=== PATIENT | female | born 1930 | race Hispanic/Latino ===

== ENCOUNTER 2016-11-07 06:47 | Inpatient (IN) | payer MEDICARE ==
[2016-11-07 06:50] VITALS: BMI 32.8
--- NOTE | 2016-11-07 07:14 | ED PDOC ---
Arrival/HPI - General Chief Complaint: GI Problem Time Seen by Provider: 11/07/16 07:02 Historian: Patient, Family (Daughters) - History of Present Illness Narrative History of Present Illness (Text): 11/07/16 07:12 Jenna Garg is an 86 year old female, whose past medical history includes Arthritis, hypertension, Wheezing, and spinal Stenosis, who presents to the emergency department complaining of diffuse, intermittent abdominal pain since last night. Patient's daughter states that patient's abdomen is "bigger" and her abdomen was firm this morning. She also notes that patient experiences incontinence. Patient indicates that her pain worsens with movement and it hurts to lay flat. Patient denies any nausea, vomiting, diarrhea, constipation, fever, bleeding, or any other complaint at this time. PMD: Dr. Maria Time/Duration: 4-6 hours Symptom Onset: Gradual Symptom Course: Worsening Severity Level: Moderate Activities at Onset: Rest Modifying Factors (Text): Pain worsens with movement, cannot lay flat Context: Home Past Medical History - Provider Review Nursing Documentation Reviewed: Yes - Infectious Disease Hx of Infectious Diseases: None - Cardiac Hx Hypertension: Yes - Pulmonary Hx Respiratory Disorders: Yes Hx Chronic Obstructive Pulmonary Disease (COPD): Yes (?) - Psychiatric Hx Substance Use: No - Anesthesia Hx Anesthesia: No Family/Social History - Physician Review Nursing Documentation Reviewed: Yes Family/Social History: No Known Family HX Smoking Status: Never Smoked Hx Alcohol Use: No Hx Substance Use: No Allergies/Home Meds Allergies/Adverse Reactions: Allergies No Known Allergies Allergy (Verified 11/07/16 06:50) Review of Systems - Physician Review All systems were reviewed & negative as marked: Yes - Review of Systems Constitutional: absent: Fevers, Night Sweats Eyes: absent: Vision Changes ENT: absent: Hearing Changes Respiratory: absent: SOB, Cough Cardiovascular: absent: Chest Pain Gastrointestinal: Abdominal Pain. absent: Constipation, Diarrhea, Nausea, Vomiting Genitourinary Female: Other (Incontinence) Skin: absent: Pruritis Neurological: absent: Headache Endocrine: absent: Polyuria Hemo/Lymphatic: absent: Easy Bleeding Psychiatric: absent: Depression Physical Exam Vital Signs Reviewed: Yes Vital Signs Temp Pulse Resp BP Pulse Ox 11/07/16 13:36 70 18 156/68 H 96 11/07/16 13:34 70 156/68 H 11/07/16 12:00 97.3 F L 71 18 138/72 98 11/07/16 11:39 97.3 F L 11/07/16 09:41 60 18 143/71 95 11/07/16 09:08 60 18 144/67 96 11/07/16 07:02 62 18 167/72 H 94 L Temperature: Afebrile Blood Pressure: Hypertensive Pulse: Regular Respiratory Rate: Normal Appearance: Positive for: Well-Appearing, Non-Toxic, Comfortable Pain Distress: None Mental Status: Positive for: Alert and Oriented X 3 - Systems Exam Abdomen: Present: Tenderness, Guarding, Other (Palpable abdominal mass) Medical Decision Making - Lab Interpretations Lab Results: 11/07/16 07:12 11/07/16 07:12 Lab Results 11/07/16 07:12: WBC 6.8, RBC 3.04 L, Hgb 9.5 L, Hct 28.2 L, MCV 92.8, MCH 31.3, MCHC 33.7, RDW 19.5 H, Plt Count 108 L, MPV 11.8 H, Gran % 61.9, Lymph % (Auto) 30.7, Marin % (Auto) 5.8, Eos % (Auto) 1.3 L, Baso % (Auto) 0.3, Gran # 4.20, Lymph # 2.1, Marin # 0.4, Eos # 0.1, Baso # 0.02, PT 11.4, INR 1.06, APTT 30.0, Sodium 138, Potassium 5.1 H, Chloride 101, Carbon Dioxide 29, Anion Gap 13, BUN 36 H, Creatinine 0.9, Est GFR ( Amer) > 60, Est GFR (Non-Af Amer) 59, Random Glucose 79, Calcium 9.9, Total Bilirubin 0.7, AST 50 H, ALT 28, Alkaline Phosphatase 202 H, Total Protein 7.3, Albumin 3.6, Globulin 3.7, Albumin/ Globulin Ratio 1.0 L, Lipase 240 - RAD Interpretation Radiology Orders: 11/07/16 07:12 ABD PELVIS PO & IV CONTRAST [CT] Stat 11/07/16 07:13 CHEST PORTABLE [RAD] Stat - Medication Orders Current Medication Orders: Metoprolol Succinate (Toprol Xl) 50 mg PO BRK [facility] Last Admin: 11/07/16 13:34 Dose: 50 MG MAR Pulse and Blood Pressure Document 11/07/16 13:34 [facility] (Rec: 11/07/16 13:35 [facility] [id number]) Pulse Pulse Rate (60-90) 70 Blood Pressure Blood Pressure (100/60-150/90) 156/68 Discontinued Medications Famotidine (Pepcid) 20 mg IVP STAT STA Stop: 11/07/16 07:13 Last Admin: 11/07/16 07:29 Dose: 20 MG IVP Administration Document 11/07/16 07:29 [facility] (Rec: 11/07/16 07:29 [facility] [id number]) Charges for Administration # of IVP Administrations 1 Iohexol (Omnipaque 240 (50 Ml)) Confirm Administered Dose 50 ml .ROUTE .STK-MED ONE Stop: 11/07/16 07:21 Iohexol (Omnipaque 350 100 Ml) Confirm Administered Dose 350 mg .ROUTE .STK-MED ONE Stop: 11/07/16 10:11 Ketorolac Tromethamine (Toradol) 15 mg IVP STAT STA Stop: 11/07/16 07:13 Last Admin: 11/07/16 07:29 Dose: 15 MG IVP Administration Document 11/07/16 07:29 [facility] (Rec: 11/07/16 07:29 [facility] [id number]) Charges for Administration # of IVP Administrations 1 ED OBSERVATION Date of observation admission: 11/07/16 Time of observation admission: 07:15 - Observation admission statement Patient is being placed in observation because:: Diffuse, intermittent abdominal pain - Goals of Observation Goals of observation are:: Plan: -- EKG -- Abdomen and Pelvis CT w/ PO & IV Contrast -- Chest X-ray -- Labs -- Pepcid, Toradol -- Reassess and disposition - Progress Note Progress Note: EKG: Ordered, reviewed, and independently interpreted the EKG. Rate : 69 BPM Rhythm : NSR Interpretation : 1st degree AV block. PVC. 11/07/16 08:36 Reviewed radiology, chest x-ray shows cardiomegaly 11/07/16 09:50 Chest X-ray: Creator : DORETHA JONES MD FINDINGS: LUNGS:There is mild pulmonary venous congestion. PLEURA:There is blunting of the left costophrenic angle. There is no large right pleural effusion. No pneumothorax apparent. CARDIOVASCULAR:The heart is enlarged. OSSEOUS STRUCTURES:There is a deformity. VISUALIZED UPPER ABDOMEN:Normal. OTHER FINDINGS:None. IMPRESSION: Cardiomegaly. Question of left pleural effusion. 11/07/16 12:[address] results discussed with family. Dr. García, PMD, came to talk to family about results. In light of persistent pain, patient will be placed on observation for intractable pain. She also has noted b/l pleural effusions with elevated BNP so she will be evaluated for New Onset CHF. - Scribe Statement The provider has reviewed the documentation as recorded by the Karinaibe Florencia Sarah Provider Scribe Attestation: All medical record entries made by the Sharan were at my direction and personally dictated by me. I have reviewed the chart and agree that the record accurately reflects my personal performance of the history, physical exam, medical decision making, and the department course for this patient. I have also personally directed, reviewed, and agree with the discharge instructions and disposition. Disposition/Present on Arrival - Present on Arrival Any Indicators Present on Arrival: No History of DVT/PE: No History of Uncontrolled Diabetes: No Urinary Catheter: No History of Decub. Ulcer: No History Surgical Site Infection Following: None - Disposition Have Diagnosis and Disposition been Completed?: Yes Diagnosis: Intractable abdominal pain, Congestive heart failure Disposition Time: 07:15 Patient Plan: Observation Condition: FAIR
[2016-11-07] MEDS ORDERED: Iohexol 240 (50 ml) ONE (07:20)
[2016-11-07 07:37] LABS: ADD MANUAL DIFF? NO; BASO # 0.02 K/mm3 (0.0-2.0); BASO % 0.3 % (0.0-3.0); EOS # 0.1 (0.0-0.7); EOS % 1.3 % (1.5-5.0); GRAN % 61.9 % (50.0-68.0); HEMATOCRIT 28.2 % (36.0-48.0); LYMPH # 2.1 (1.2-3.4); LYMPH % 30.7 % (22.0-35.0); MEAN CELL VOLUME 92.8 fL (80.0-105.0); MEAN CORPUSCULAR HEMOGLOBIN 31.3 pg (25.0-35.0); MEAN CORPUSCULAR HGB CONC 33.7 g/dl (31.0-37.0); MEAN PLATELET VOLUME 11.8 fl (7.0-11.0); MONO # 0.4 (0.1-0.6); MONO % 5.8 % (1.0-6.0); PLATELET COUNT 108 10^3/uL (120.0-450.0); RED CELL DISTRIBUTION WIDTH 19.5 % (11.5-14.5); WHITE BLOOD COUNT 6.8 10^3/ul (4.5-11.0)
[2016-11-07 07:45] LABS: ALKALINE PHOSPHATASE 202 U/L (38-133); ALT/SGPT 28 U/L (7-56); AST/SGOT 50 U/L (15-39); BILIRUBIN,TOTAL 0.7 mg/dL (0.2-1.3); BLOOD UREA NITROGEN 36 mg/dL (7-21); CALCIUM 9.9 mg/dL (8.4-10.5); CARBON DIOXIDE 29 mmol/L (21-33); CHLORIDE 101 mmol/L (98-107); GFR AFRICAN-AMERICAN > 60; GLUCOSE,RANDOM 79 mg/dL (70-110); LIPASE 240 U/L (23-300); POTASSIUM 5.1 mmol/L (3.6-5.0); SODIUM 138 mmol/L (132-148); TOTAL PROTEIN 7.3 g/dL (5.8-8.3)
[2016-11-07 07:46] LABS: INR 1.06 (0.93-1.08)
--- NOTE | 2016-11-07 09:51 | RAD ---
HISTORY: Abdominal pain COMPARISON: No prior. FINDINGS: LUNGS: There is mild pulmonary venous congestion. PLEURA: There is blunting of the left costophrenic angle. There is no large right pleural effusion. No pneumothorax apparent. CARDIOVASCULAR: The heart is enlarged. OSSEOUS STRUCTURES: There is a deformity. VISUALIZED UPPER ABDOMEN: Normal. OTHER FINDINGS: None. IMPRESSION: Cardiomegaly. Question of left pleural effusion.
[2016-11-07] MEDS ORDERED: Iohexol 350 MG/100 ML VIAL ONE (10:10)
--- NOTE | 2016-11-07 11:08 | CT ---
PROCEDURE: CT Abdomen and Pelvis with contrast HISTORY: abd pain and distention r/o mass r/o obstruction COMPARISON: None. TECHNIQUE: Helical CT scan of the abdomen and pelvis was performed after intravenous administration of contrast. Oral contrast was administered. Coronal and sagittal reformatted images were obtained. Contrast dose: 100 mL of Omnipaque 350 Radiation dose: Total exam DLP = 1188.45 mGy-cm. FINDINGS: LOWER THORAX: There are moderate bilateral pleural effusions with compressive atelectasis in the lungs, larger on the left. There is moderate cardiomegaly. LIVER: The liver is normal in size and there is homogeneous enhancement. No gross lesion or ductal dilatation. GALLBLADDER AND BILE DUCTS: There are no calcified gallstones. PANCREAS: The pancreas is grossly normal in appearance. No gross lesion or ductal dilatation. SPLEEN: The spleen is normal in size and there is homogeneous enhancement. ADRENALS: Both adrenal glands are normal in size without discrete nodule. No mass. KIDNEYS AND URETERS: Both kidneys are normal in size and there is homogeneous enhancement. No hydronephrosis. No solid mass. VASCULATURE: There is ectasia of the infrarenal aorta and atherosclerotic aortoiliac calcifications. . No aortic aneurysm. BOWEL: The small bowel loops are normal in caliber. There is extensive sigmoid diverticulosis without CT evidence for acute diverticulitis. There is moderate amount of stool in the colon. APPENDIX: Normal appendix. PERITONEUM: There is moderate perihepatic fluid and small amount of free fluid in the pelvis. No free intraperitoneal air. LYMPH NODES: No enlarged lymph nodes. BLADDER: Partially decompressed. REPRODUCTIVE: The uterus is normal in size. There is a 7.8 x 5.7 cm cystic mass in the left adnexa. BONES: There is diffuse bone demineralization and severe levoscoliosis in the lumbar spine with multilevel degenerative disc disease and degenerative anterior listhesis of L4 on L5. OTHER FINDINGS: None. IMPRESSION: 1. Extensive sigmoid diverticulosis without CT evidence for acute diverticulitis. Moderate amount of stool in the colon. No evidence of bowel obstruction. 2. 7.8 x 5.7 cm cystic mass in the left adnexa. The differential considerations include simple cyst, cystadenoma and cystadenocarcinoma. Gynecologic consultation is advised. 3. Moderate bilateral pleural effusions and moderate ascites.
[2016-11-07] MEDS ORDERED: POLYETHYLENE GLYCOL 3350 17 GM/Dose PACKET PO SCH (13:30)
[2016-11-07] MEDS: Metoprolol Succinate 50 mg XL Tab PO SCH (13:34)
--- NOTE | 2016-11-07 14:57 | CARD ---
APPROVED REPORT EKG Measurement Heart [id number] <Conclusion> Sinus rhythm with 1st degree AV block with premature supraventricular complexes Possible Anterior infarct, age undetermined Abnormal ECG
--- NOTE | 2016-11-07 17:02 | HP ---
CHIEF COMPLAINT: Generalized abdominal pain for 1 day. HISTORY OF PRESENT ILLNESS: This is an 86-year-old female with past medical history significant for hypertension and osteoarthritis, who presented to the Emergency Room with complaints of generalized abdominal pain, intermittent since last night. The patient denies any nausea, vomiting, diarrhea, or constipation. The patient denies any fever, shortness of breath, or cough. PAST MEDICAL HISTORY: hypertension for many years, currently presently taking metoprolol 50 mg daily, osteoarthritis of both knees, chronic anemia, and hyperlipidemia. PAST SURGICAL HISTORY: She is status post cataract surgeries. CURRENT MEDICATIONS: Metoprolol 50 mg daily. FAMILY HISTORY: Noncontributory. No history of any cancer. Past history of heart disease. SOCIAL HISTORY: The patient denies any smoking, alcohol, or drug use. She is retired and the lives with her daughter who will be taking care of her. The patient is ambulatory and independent of activity of daily living. REVIEW OF SYSTEMS: The patient denies any fever, loss of appetite or weight loss. She denies any blurry vision. She denies any nasal congestion, sore throat, or dysphagia. She denies any shortness of breath, but has a dry cough for the past month. She denies any chest pain, heart palpitation, diaphoresis, shortness of breath. The patient complains of generalized abdominal pain for 2 days. She denies any nausea, vomiting, diarrhea, or constipation. She denies any rectal bleeding. She denies any dysuria, hematuria, or flank pain. The patient complains of bilateral knee and hip pain, and limitation of ambulation. The patient denies any neurological symptoms as dizziness, blurry vision, weakness, or numbness. The patient denies any psychiatric symptoms of depression or anxiety. PHYSICAL EXAMINATION: VITAL SIGNS: The patient's vitals are stable. Temperature 97.3, pulse 71 regular, blood pressure 138/72, respiratory rate 18. GENERAL: The patient is alert, awake, oriented, in no acute form of distress during the examination. HEAD: Normocephalic, atraumatic. EYES: Pupils reactive to light. No jaundice. Oral mucosa is moist. NECK: Supple. No neck masses, JVD, or bruits. LUNGS: Clear to auscultation. HEART: Regular rhythm and rate of 70 per minute. ABDOMEN: Nondistended. There is tenderness in the periumbilical area with some palpable small ventral hernia. Bowel sounds are positive. EXTREMITIES: Significant for 1+ bilateral pedal edema, small varicose veins, distal pulses diminished. DIAGNOSTIC TESTS: CBC with WBC 6.8, hemoglobin 9.5, hematocrit 28.2, and platelet count 108,000. PT, PTT normal. Chemistry with sodium 138, potassium 5.1, her BUN is 36 and creatinine 0.9. Liver enzymes: AST 50, ALT 28, and alkaline phosphatase 202. Her BNP was elevated at 1800. ECG showed normal sinus rhythm with first degree AV block and premature PVCs, possibly an old anterior infarct. Chest x-ray showed possible left pleural effusion. CT scan of the abdomen showed extensive sigmoid diverticulosis without signs of diverticulitis. There was moderate amount of stool in the colon. There is moderate bilateral pleural effusion with moderate ascites noted, and large 7.8 cm cystic mass in the left adnexal area. ASSESSMENT: An 86-year-old female with 1. Generalized abdominal pain, etiology uncertain, possibly early obstruction . 2. Pleural effusion, etiology uncertain, possibly cardiac due to CHF. 3. Ovarian mass, of uncertain etiology. 4. Hypertension. 5. Anemia chronic, no signs of acute bleeding. PLAN OF TREATMENT: The patient will be admitted for observation. The case was discussed with family members. Discussed the possibility of obstruction. The patient will be evaluated by a surgeon and heat set operator. The patient will be maintained on chronic antihypertensive medication, and also Lasix will be started. Follow up urine and blood cultures, CEA, and transvaginal ultrasound was ordered for evaluation of ovarian mass.I will consult TICKET CHOPPER ASSEMBLER . Jeannine Khoury MD cc: [id number] TT: 11/07/2016 17:01:12 ln MTDIndu
[2016-11-07] MEDS ORDERED: Pneumococcal 23-Valent Vaccine IM ONE (19:42)
[2016-11-07] MEDS ORDERED: Influenza Vaccine 45 MCG/0.5 ml IM ONE (19:42)
--- NOTE | 2016-11-07 20:47 | CP.PCM.CON ---
History of Present Illness - History of Present Illness History of Present Illness: SURGERY CONSULT NOTE FOR DR. VARELA 86F presents to [facility] ED with abdominal pain that started last midnight. Patient states pain was localized to the lower abdomen bilaterally and came on suddenly. She has never had this type of pain before. She denies nausea/ vomiting and states she just recently ate fluid liquid diet and was able to keep the food down. Patient admits to passing multiple small soft bowel movement right before coming in to the ED and also while in the ED. She denies fevers or chills. PMH: HTN, Arthritis, Anemia, HLD PSH: Cataract Social: denies tobacco, alcohol, illicit drugs Allergies: NKDA Past Patient History - Infectious Disease Hx of Infectious Diseases: None - Past Social History Smoking Status: Never Smoked - CARDIAC Hx Cardiac Disorders: Yes Hx Hypertension: Yes - PULMONARY Hx Respiratory Disorders: Yes Hx Chronic Obstructive Pulmonary Disease (COPD): Yes (?) - NEUROLOGICAL Hx Neurological Disorder: Yes - HEENT Hx HEENT Problems: Yes Hx Deafness: Yes - RENAL Hx Chronic Kidney Disease: No - ENDOCRINE/METABOLIC Hx Endocrine Disorders: No - HEMATOLOGICAL/ONCOLOGICAL Hx Blood Disorders: Yes Hx Anemia: Yes (IRON DEFICIENCY) - INTEGUMENTARY Hx Dermatological Problems: Yes (SACRAL PRESSURE ULCER 0.8 X 0.3 X 0.1 ,IASD AND MASD) - MUSCULOSKELETAL/RHEUMATOLOGICAL Hx Musculoskeletal Disorders: Yes Hx Falls: Yes Hx Spinal Stenosis: Yes Hx Unsteady Gait: Yes (ROLLATOR) - GASTROINTESTINAL Hx Gastrointestinal Disorders: Yes (CONSTIPATION) - GENITOURINARY/GYNECOLOGICAL Hx Genitourinary Disorders: Yes Hx Incontinence: Yes - PSYCHIATRIC Hx Substance Use: No - SURGICAL HISTORY Hx Surgeries: No - ANESTHESIA Hx Anesthesia: No Meds Allergies/Adverse Reactions: Allergies Allergy/AdvReac Type Severity Reaction Status Date / Time No Known Allergies Allergy Verified 11/07/16 16:49 - Medications Medications: Current Medications Acetaminophen (Tylenol 325mg Tab) 650 mg PO Q4H PRN PRN Reason: Pain, Mild (1-3) Furosemide (Lasix) 20 mg IVP Q12 DERICK Last Admin: 11/07/16 15:06 Dose: 20 mg Ketorolac Tromethamine (Toradol) 15 mg IVP Q6 PRN PRN Reason: Pain, moderate (4-7) Metoprolol Succinate (Toprol Xl) 50 mg PO BRK [facility] Last Admin: 11/07/16 13:34 Dose: 50 mg Physical Exam - Constitutional Appears: Non-toxic, No Acute Distress - Head Exam Head Exam: ATRAUMATIC - Eye Exam Eye Exam: EOMI, PERRL - ENT Exam ENT Exam: Mucous Membranes Moist - Respiratory Exam Respiratory Exam: Clear to Auscultation Bilateral, NORMAL BREATHING PATTERN - Cardiovascular Exam Cardiovascular Exam: REGULAR RHYTHM, +S1, +S2 - GI/Abdominal Exam GI & Abdominal Exam: Soft, Tenderness (tenderness in the LLQ region). absent: Distended, Firm, Guarding, Hernia, Rebound, Rigid - Extremities Exam Extremities exam: Positive for: pedal edema, pedal pulses present. Negative for : tenderness - Neurological Exam Neurological exam: Alert, Oriented x3 - Skin Skin Exam: Dry, Intact, Normal Color, Warm Results - Vital Signs Recent Vital Signs: Last Vital Signs Temp 98.3 F 11/07/16 19:19 Pulse 67 11/07/16 19:19 Resp 19 11/07/16 19:19 BP 124/57 L 11/07/16 19:19 Pulse Ox 93 L 11/07/16 18:06 - Labs Result Diagrams: 11/07/16 07:12 11/07/16 07:12 Labs: Laboratory Results - last 24 hr 11/07/16 13:00 NT-Pro-B Natriuret Pep 1830 H CA 125 Antigen 42.1 H Assessment & Plan - Assessment and Plan (Free Text) Assessment: 86F presents with abdominal pain likely due to left cystic mass in left adnexa/ constipation CT: moderate amount of stool in the colon, 7.8*5.7cm cystic mass in the left adnexa region (cyst vs cystadenoma vs cystadenocarcinoma) Plan: - Patient needs OBGYN consult for adnexal mass - Gylcerin suppository, dulcolax - serial abdominal exams - pain control Discussed with Dr. Jolynn Bertrand, PGY1
[2016-11-07] MEDS ORDERED: Bisacodyl 5mg EC Tab PO ONE (23:24)
--- NOTE | 2016-11-08 06:14 | CP.PCM.PN ---
Subjective - Date & Time of Evaluation Date of Evaluation: 11/08/16 Time of Evaluation: 06:10 - Subjective Subjective: SURGERY NOTE FOR DR. VARELA 86F seen and examined at bedside. Patient states she feels better. Denies pain, nausea, vomiting. Tolerating her diet. She had more small bowel movements after the glycerin suppository. Objective - Vital Signs/Intake and Output Vital Signs (last 24 hours): Temp Pulse Resp BP Pulse Ox 98.3 F 78 19 138/62 93 L 11/07/16 19:19 11/08/16 05:55 11/07/16 19:19 11/07/16 21:39 11/07/16 18:06 - Medications Medications: Current Medications Acetaminophen (Tylenol 325mg Tab) 650 mg PO Q4H PRN PRN Reason: Pain, Mild (1-3) Furosemide (Lasix) 20 mg IVP Q12 DERICK Last Admin: 11/07/16 21:39 Dose: 20 mg Ketorolac Tromethamine (Toradol) 15 mg IVP Q6 PRN PRN Reason: Pain, moderate (4-7) Metoprolol Succinate (Toprol Xl) 50 mg PO BRK [facility] Last Admin: 11/07/16 13:34 Dose: 50 mg - Labs Labs: PT 11.4 Seconds (9.9-11.8) 11/07/16 07:12 INR 1.06 (0.93-1.08) 11/07/16 07:12 APTT 30.0 Seconds (23.7-30.8) 11/07/16 07:12 - Constitutional Appears: Non-toxic, No Acute Distress - Head Exam Head Exam: ATRAUMATIC - Eye Exam Eye Exam: EOMI, PERRL - ENT Exam ENT Exam: Mucous Membranes Moist - Respiratory Exam Respiratory Exam: Clear to Ausculation Bilateral, NORMAL BREATHING PATTERN - Cardiovascular Exam Cardiovascular Exam: REGULAR RHYTHM, +S1, +S2 - GI/Abdominal Exam GI & Abdominal Exam: Soft. absent: Distended, Firm, Guarding, Rigid, Tenderness , Rebound - Extremities Exam Extremities Exam: Pedal Edema. absent: Tenderness - Neurological Exam Neurological Exam: Alert, Awake - Psychiatric Exam Psychiatric exam: Normal Affect, Normal Mood - Skin Skin Exam: Dry, Intact, Normal Color, Warm Assessment and Plan - Assessment and Plan (Free Text) Assessment: 86F presents with resolving abdominal pain (resolved) likely due to left adnexal cystic mass Plan: - f/u Audio/Visual Operator - Dulcolax if patient feels further constipation - serial abdominal exams - pain control Further recs discuss with Dr. Jolynn Bertrand, PGY1
[2016-11-08 07:29] LABS: HEMATOCRIT 24.7 % (36.0-48.0); MEAN CELL VOLUME 92.9 fL (80.0-105.0); MEAN CORPUSCULAR HEMOGLOBIN 31.2 pg (25.0-35.0); MEAN CORPUSCULAR HGB CONC 33.6 g/dl (31.0-37.0); PLATELET COUNT 94 10^3/uL (120.0-450.0); RED CELL DISTRIBUTION WIDTH 19.7 % (11.5-14.5); WHITE BLOOD COUNT 7.7 10^3/ul (4.5-11.0)
[2016-11-08 07:34] LABS: ALB/GLOB RATIO 0.9 (1.1-1.8); BILIRUBIN,TOTAL 0.5 mg/dL (0.2-1.3); CALCIUM 9.1 mg/dL (8.4-10.5); TOTAL PROTEIN 6.2 g/dL (5.8-8.3)
[2016-11-08] MEDS: Metoprolol Succinate 50 mg XL Tab PO SCH (08:33)
[2016-11-08] MEDS: Nystatin 100,000 Units/gm Topical Pow(15 gm) TOP SCH ×2 (12:45→18:32)
[2016-11-08 12:49] LABS: IRON 69 ug/dL (45-180)
[2016-11-08 21:09] LABS: URINE BILIRUBIN NEGATIVE (NEGATIVE); URINE BLOOD LARGE (NEGATIVE); URINE GLUCOSE (UA) NEGATIVE (NEGATIVE); URINE KETONE NEGATIVE (NEGATIVE); URINE LEUKOCYTE ESTERASE MODERATE Leu/uL (NEGATIVE); URINE PROTEIN NEGATIVE mg/dL (<30 mg/dL)
[2016-11-08 21:10] LABS: URINE APPEARANCE CLOUDY (CLEAR); URINE COLOR YELLOW (YELLOW)
[2016-11-08 21:14] LABS: URINE AMORPHOUS SEDIMENT MANY; URINE BACTERIA SMALL (NEG); URINE EPITHELIAL CELLS MANY /hpf (0-5); URINE RBC 25 - 30 /hpf (0-2)
--- NOTE | 2016-11-08 22:46 | PN ---
DATE: 11/08/2016 SUBJECTIVE: The patient was seen this morning at bedside. The patient is feeling much better. She denies any abdominal pain. Surgical consultation appreciated. The patient was treated with Dulcolax suppositories to improve her constipation. She denies any nausea, vomiting or diarrhea. The patien t is tolerating diet. PHYSICAL EXAMINATION: VITAL SIGNS: Stable. Temperature 97.6, pulse 75 regular, blood pressure 134/55 and respiratory rate 19. GENERAL: She is comfortable, in no acute form of distress. HEENT: Head is normocephalic, atraumatic. Oral mucosa is moist. NECK: Supple. LUNGS: With decreased breath sounds. No rales, wheezing. HEART: With regular rhythm and rate. ABDOMEN: Soft, nondistended, nontender. Bowel sounds are positive. EXTREMITIES: With trace of edema, but decreased compared to yesterday. DIAGNOSTIC TESTS: This morning significant for CBC with WBC 7.7. Hemoglobin dropped to 8.3, down fr om 9.5 yesterday. Her hematocrit is 24.7. She has also low platelet count 94,000. Her chemistry sh owed normal electrolytes. Her BUN increased to 44 and creatinine is 1.6. CA-125 is 42.1, which is b orderline high. Her CEA is 2.2, which is normal. ASSESSMENT: 1. Abdominal pain, probably due to constipation, clinically improved. 2. Left ovarian mass of uncertain etiology. 3. Anemia with thrombocytopenia with no signs of acute bleeding. Must rule out myelodysplastic diso rder. 4. Bilateral pleural effusion. 5. Probably congestive heart failure. 6. Hypertension. 7. Increase of BUN and creatinine, possibly prerenal due to diuretics; however, the patient had also IV contrast yesterday. PLAN OF TREATMENT: We will decrease furosemide to once a day. We will continue her current treatmen t with metoprolol. Awaiting BEATER HEAD evaluation. Follow up echocardiogram, which was ordered. We will m onitor her hemoglobin and platelet count. I will discuss with family. Hematology consult. Jeannine Khoury MD cc: [id number] TT: 11/08/2016 22:46:31 Confirmation # [id number] Dictation # [id number] mn
[2016-11-09 07:46] LABS: HEMATOCRIT 27.4 % (36.0-48.0); MEAN CELL VOLUME 93.2 fL (80.0-105.0); MEAN CORPUSCULAR HEMOGLOBIN 31.3 pg (25.0-35.0); MEAN CORPUSCULAR HGB CONC 33.6 g/dl (31.0-37.0); MEAN PLATELET VOLUME 11.5 fl (7.0-11.0); RED CELL DISTRIBUTION WIDTH 19.5 % (11.5-14.5); WHITE BLOOD COUNT 7.7 10^3/ul (4.5-11.0)
[2016-11-09 08:06] LABS: BILIRUBIN,TOTAL 0.6 mg/dL (0.2-1.3); CALCIUM 9.5 mg/dL (8.4-10.5); POTASSIUM 4.9 mmol/L (3.6-5.0)
[2016-11-09] MEDS: Nystatin 100,000 Units/gm Topical Pow(15 gm) TOP SCH ×2 (09:32→17:38)
[2016-11-09] MEDS: Metoprolol Succinate 50 mg XL Tab PO SCH (09:36)
--- NOTE | 2016-11-09 10:04 | PN ---
DATE: 11/09/2016 The patient feels much better this morning. She denies any abdominal pain. The patient tolerates di et. She was evaluated by [employer] consultant last night. Case discussed with family members. The patient denies any shortness of breath, chest pain, dizziness. PHYSICAL EXAMINATION: VITAL SIGNS: She is afebrile, pulse 60, regular, blood pressure 155/72, respiratory rate 19. GENERAL: She is comfortable, sitting in the chair, alert, awake, oriented. HEENT: Head normocephalic, atraumatic. Oral mucosa is moist. NECK: Supple. LUNGS: Clear to auscultation with decreased breath sounds in the bases. HEART: With regular rhythm and bradycardic. ABDOMEN: Soft, nontender, nondistended. EXTREMITIES: With trace of edema, improved since admission. DIAGNOSTIC TESTS: Today, CBC stable with WBC 7.7, hemoglobin 9.2, hematocrit 27.4 and platelet count 101. Chemistry: Normal electrolytes. Her renal function seems increased with BUN 50 and creatinin e 1.6. ASSESSMENT: 1. Left ovarian mass of uncertain etiology with slightly elevated CA-125. 2. History of abdominal pain with constipation, resolved. 3. Anemia with thrombocytopenia with negative guaiac and no signs of active bleeding, rule out myelo dysplastic disorder. 4. Bilateral pleural effusions. 5. Hypertension, possibly. 6. Probably congestive heart failure. 7. Acute renal failure, probably prerenal due to furosemide. PLAN OF TREATMENT: We will follow up echocardiogram. Awaiting cardiology evaluation. Discussed josefa e with family and patient. The patient does not want transvaginal ultrasound or any aggressive treat ment for her ovarian mass. The family prefers observation and monitoring. I discussed with family celina medina for cardiac evaluation. They agree to have echocardiogram and cardiology consult. I discussed h ematology consultation, but her daughter wants to also wait since the problem is in chronic nature. I will start a small dose of IV fluid due to renal function and monitor. Jeannine Khoury MD cc: [phone] TT: 11/09/2016 10:03:54 Confirmation # [id number] Dictation # [id number] en
[2016-11-09] MEDS: Sodium Chloride 0.9% 1,000 ML IV SCH (14:00)
--- NOTE | 2016-11-09 14:29 | CARD ---
APPROVED REPORT EXAM: Two-dimensional and M-mode echocardiogram with Doppler and color Doppler. INDICATION Pleural Effusion Congestive Heart Failure 2D DIMENSIONS Left Atrium (2D)5.8 (1.6-4.0cm)IVSd1.3 (0.7-1.1cm) LVDd4.9 (3.9-5.9cm)PWd1.6 (0.7-1.1cm) LVDs3.2 (2.5-4.0cm)FS (%) 36.1 % LVEF (%)65.4 (>50%) M-Mode DIMENSIONS Aortic Root2.80 (2.2-3.7cm)Aortic Cusp Exc.1.60 (1.5-2.0cm) Aortic Valve AoV Peak Xrmrqlzm579.0cm/sAoV VTI67.1cmAO Peak GR.33mmHg LVOT Peak Kdxsjjjc762.0cm/sLVOT VTI38.70cmAO Mean GR.16mmHg Mitral Valve MV E Evtrvzfk450.0cm/sMV A Etuzbppe607.0cm/sE/A ratio1.1 TDI Lateral E' Peak V9.26cm/sE/Lateral E'11.9E/Medial E'0.0 Pulmonary Valve PV Peak Waxoojga36.3cm/sPV Peak Grad.3mmHg Tricuspid Valve TR Peak Bnrgyjsz659qf/sRAP YXSMBWSR20jpXvMF Peak Gr.60mmHg HFSI93bzUo LEFT VENTRICLE The left ventricle is normal size. There is mild to moderate concentric left ventricular hypertrophy. The left ventricular function is normal.EF-65% There is normal LV segmental wall motion. The left ventricular diastolic function is normal. No left ventricle thrombus noted on this study. There is no ventricular septal defect visualized. There is no left ventricular aneurysm. There is no mass noted in the left ventricle. RIGHT VENTRICLE The right ventricle is mildly dilated. There is normal right ventricular wall thickness. The right ventricular systolic function is normal. ATRIA There is a mass suspected in the left atrium. The right atrium is mildly dilated. The interatrial septum is intact with no evidence for an atrial septal defect. AORTIC VALVE The aortic valve is thickened but opens well. The aortic valve is moderately sclerotic. There is trace aortic regurgitation. There is no aortic valvular stenosis. There is no aortic valvular vegetation. MITRAL VALVE The mitral valve is thickened but opens well. Mitral regurgitation is moderate. There is no mitral valve stenosis. There is no evidence of mitral valve prolapse. TRICUSPID VALVE The tricuspid valve leaflets are thickened , but open well. There is moderate tricuspid regurgitation.RVSP-70 mmof Hg. There is no tricuspid valve stenosis. There is no tricuspid valve prolapse or vegetation. PULMONIC VALVE The pulmonic valve is mildly thickened. There is mild to moderate pulmonic valvular regurgitation. There is no pulmonic valvular stenosis. GREAT VESSELS The aortic root is normal in size. The ascending aorta is normal in size. The pulmonary artery is normal. The IVC is normal in size and collapses >50% with inspiration. PERICARDIAL EFFUSION There is no pleural effusion. There is no pericardial effusion. <Conclusion> The left ventricle is normal size. There is mild to moderate concentric left ventricular hypertrophy. The left ventricular function is normal.EF-65% There is trace aortic regurgitation. Mitral regurgitation is moderate. There is moderate tricuspid regurgitation.RVSP-70 mmof Hg.
--- NOTE | 2016-11-09 15:33 | CON ---
DATE: 11/09/2016 REASON FOR CONSULTATION: Acute kidney injury, hyperkalemia. HISTORY OF PRESENTING ILLNESS: An 86-year-old lady, previously unknown to me, was brought to the [facility] Room on Wednesday because of complaints of abdominal pain. The patient underwent a CT scan of her abdomen and pelvis with contrast, which showed extensive sigmoid diverticulosis and acute diverti culitis. She was also found to have a 7.8 cm cystic mass in the left adnexa and moderate bilateral p leural effusions and moderate ascites. She was found to have lower extremity edema. She was treated with Lasix 20 mg IV q. 12 hours. Her c reatinine was 0.9 at the time of admission. Creatinine angella to 1.6 the next day. Consultation is re quested for elevated creatinine of 1.6. PAST MEDICAL AND SURGICAL HISTORY: Longstanding hypertension, severe osteoarthritis of both knees, c hronic anemia, hyperlipidemia. No known history of kidney disease, no history of diabetes. FAMILY HISTORY: Noncontributory. SOCIAL HISTORY: No smoking, no alcohol use, no IV drug abuse. ALLERGIES: No known drug allergies. MEDICATIONS AT HOME: Toprol-XL 50 mg daily. CURRENT MEDICATIONS: Dulcolax, Fluvirin, Lasix 40 IV q. 12 not given today, Pepcid, Pneumovax, Torad ol. REVIEW OF SYSTEMS: Currently, no pain, no nausea, no vomiting, no diarrhea, no chest tightness, no s hortness of breath. Complains of pain in her knees. Complains of stiffness. Difficulty ambulating. PHYSICAL EXAMINATION: GENERAL: Obese, elderly lady, sitting in chair. VITAL SIGNS: Blood pressure 166/76, heart rate 70, respiratory rate 72, temperature 97.4. HEENT: Normocephalic, atraumatic, positive pallor. NECK: Supple, no JVD. LUNGS: Bilateral equal air entry, no rales, dullness at the bases. CARDIAC: S1, S2, regular rate and rhythm, no murmur, no rub. ABDOMEN: Obese, distended, soft, nontender, bowel sounds present. EXTREMITIES: 1+ pitting edema of the lower extremities. INTAKE AND OUTPUT: 720/400. LABORATORY DATA: Sodium 136, potassium 4.9, chloride 98, CO2 30, BUN 50, creatinine 1.6, glucose 83, calcium 9.5, AST 51, ALT 30, albumin 3.5. Urinalysis: Yellow, cloudy, pH 6.0, specific gravity 1.0 10, protein negative, blood large, leukocyte esterase moderate. WBC 7.7, hemoglobin 9.2, hematocrit 27, platelets 101, MCV 93. Stool occult negative. ASSESSMENT: 1. Acute kidney injury, in the setting of exposure to contrast and diuretics. 2. Longstanding hypertension. 3. Chronic anemia. 4. Bilateral pleural effusions, ascites, lower extremity edema. 5. Large cystic adnexal mass in the left side. PLAN: 1. Follow up echocardiogram report. 2. Agree with holding Lasix for the time being. 3. Avoid nephrotoxins. 4. Suspect patient has combination of acute tubular necrosis secondary to contrast exposure plus pre renal azotemia. 5. Restart Toprol-XL for blood pressure control. 6. Monitor daily labs. 7. Do not overhydrate. Joslyn Vivas MD cc: [phone] TT: 11/09/2016 15:32:53 Confirmation # [id number] Dictation # [id number] en
--- NOTE | 2016-11-09 15:55 | CP.PCM.PN ---
Subjective - Date & Time of Evaluation Date of Evaluation: 11/09/16 Time of Evaluation: 06:45 - Subjective Subjective: General Surgery Dr. Neil Pt S&E @bedside. NAEO. pain improved. denies N/V, F/C. (+) BM, Flatus. tolerating diet. Objective - Vital Signs/Intake and Output Vital Signs (last 24 hours): Temp Pulse Resp BP Pulse Ox 97.4 F L 63 72 H 165/76 H 91 L 11/09/16 06:00 11/09/16 10:00 11/09/16 06:00 11/09/16 09:36 11/09/16 06:00 Intake and Output: 11/09/16 11/09/16 06:59 18:59 Intake Total 600 Output Total 300 Balance 300 - Medications Medications: Current Medications Acetaminophen (Tylenol 325mg Tab) 650 mg PO Q4H PRN PRN Reason: Pain, Mild (1-3) Furosemide (Lasix) 20 mg IVP DAILY [facility] Last Admin: 11/09/16 09:35 Dose: Not Given Sodium Chloride (Sodium Chloride 0.9%) 1,000 mls @ 60 mls/hr IV .[id number] [facility] Last Admin: 11/09/16 14:00 Dose: 60 mls/hr Ketorolac Tromethamine (Toradol) 15 mg IVP Q6 PRN PRN Reason: Pain, moderate (4-7) Metoprolol Succinate (Toprol Xl) 50 mg PO BRK [facility] Last Admin: 11/09/16 09:36 Dose: 50 mg Nystatin (Nystop Topical Powder) 1 gm TOP BID [facility] Last Admin: 11/09/16 09:32 Dose: 1 applic - Labs Labs: 11/09/16 07:30 11/09/16 07:30 Laboratory Tests 11/09/16 07:30 Calcium 9.5 Total Bilirubin 0.6 AST 51 H ALT 30 Alkaline Phosphatase 151 H Total Protein 7.0 Albumin 3.5 - Constitutional Appears: Non-toxic, No Acute Distress - Head Exam Head Exam: NORMAL INSPECTION - Eye Exam Eye Exam: Normal appearance - ENT Exam ENT Exam: Mucous Membranes Moist - Respiratory Exam Respiratory Exam: NORMAL BREATHING PATTERN. absent: Accessory Muscle Use, Respiratory Distress - GI/Abdominal Exam GI & Abdominal Exam: Soft. 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 Jolynn Bucio DO PGY1
[2016-11-09] MEDS: POLYETHYLENE GLYCOL 3350 17 GM/Dose PACKET PO SCH (17:38)
[2016-11-10 05:03] VITALS: RESP 17; O2SAT 92
[2016-11-10] MEDS: Sodium Chloride 0.9% 1,000 ML IV SCH (05:18)
--- NOTE | 2016-11-10 06:52 | CON ---
DATE: 11/09/2016 The patient in room 378, bed 2. REASON FOR CONSULTATION: Hypertension, mild congestion, small left pleural effusion and abdominal pa in. HISTORY OF PRESENT ILLNESS: The patient is an 86-year-old female, known case of arthritis, who sleep s in a lawn chair at home and recliner and also she walks with a walker due to arthritis, admitted wi th multiple episodes of generalized abdominal pain. The patient has no history of chest pain, shortn ess of breath, palpitations. The patient on admission to the hospital, chest x-ray showed mild conge stion and blunting of the left costophrenic angle suggestive of a small pleural effusion. The patien t's CAT scan of abdomen showed 7.8 x 7.5 left adnexal mass along with diverticulosis. Also, there is ascites present. PAST MEDICAL HISTORY: Positive for hypertension. The patient had cataract surgery. PERSONAL HISTORY: The patient denies any smoking or drinking or any drug taking. MEDICATIONS: The patient's medication at home was only metoprolol 50 mg daily. REVIEW OF SYSTEMS: All the systems were reviewed, positive mentioned in the history, others were neg ative. PHYSICAL EXAMINATION: VITAL SIGNS: Blood pressure 171/71, respirations 19, pulse 60, temperature 97.5. HEENT: Head is normocephalic. Eyes: Pupils normal. Conjunctivae slightly pale. NECK: JVP low. Carotid equal. THORAX: AP diameter normal. LUNGS: No significant rales. CARDIOVASCULAR: S1, S2. ABDOMEN: Soft. Bowel sounds normal. EXTREMITIES: No clubbing, no cyanosis. LABORATORY DATA: WBC 7.7, hemoglobin 9.2, hematocrit 27.4, platelets 101. Sodium 136, potassium 4.9 , BUN 50, creatinine 1.6. BUN on admission 36, creatinine 0.9, calcium 9.5, AST 51, ALT 30, alkaline phosphatase is 151. Total protein and albumin normal. PT, INR, PTT normal. Chest x-ray showed mil d congestion and blunting of the left costophrenic angle. EKG showed sinus rhythm with first degree AV block with premature PACs. CAT scan also showed stool in the colon. DIAGNOSES: Abdominal pain, probably it is related to constipation, diverticulosis, ovarian mass, his tory of hypertension, arthritis, anemia, thrombocytopenia. PLAN: The chest x-ray showed mild congestion, blunting of the costophrenic angles. PLAN: The patient is already getting furosemide 20 mg IV daily and also getting metoprolol succinate 50 mg p.o. daily. The patient is receiving IV fluids 60 mL per hour. Echo will be done today. I d iscussed with the family and the patient for the IV Lexiscan stress test to rule out any ischemia and they want to think about it and will wait for it. At present, the patient does not have any anginal symptoms and her breathing is normal. She is lying comfortably at this point without any cardiac sy mptoms. We will follow echocardiogram, especially to see LV function and will follow closely with juan carlos u. Nickolas Little MD cc: [phone] TT: 11/10/2016 06:52:08 Confirmation # [id number] Dictation # [id number] tn
[2016-11-10 07:45] LABS: HEMATOCRIT 26.6 % (36.0-48.0); MEAN CORPUSCULAR HEMOGLOBIN 30.8 pg (25.0-35.0); MEAN CORPUSCULAR HGB CONC 33.1 g/dl (31.0-37.0); MEAN PLATELET VOLUME 11.2 fl (7.0-11.0); RED CELL DISTRIBUTION WIDTH 19.4 % (11.5-14.5); WHITE BLOOD COUNT 7.4 10^3/ul (4.5-11.0)
[2016-11-10 07:58] LABS: BILIRUBIN,TOTAL 0.5 mg/dL (0.2-1.3); CALCIUM 9.4 mg/dL (8.4-10.5); POTASSIUM 4.7 mmol/L (3.6-5.0); TOTAL PROTEIN 6.6 g/dL (5.8-8.3)
[2016-11-10] MEDS: Metoprolol Succinate 50 mg XL Tab PO SCH (08:01)
--- NOTE | 2016-11-10 08:09 | CON ---
DATE: 11/09/2016 Seen and examined at the bedside. The chart was reviewed. REQUEST FOR CONSULT: Abdominal pain/constipation. HISTORY OF PRESENT ILLNESS: This is an 86-year-old female with a past medical history of hypertensio n and chronic anemia, who came to the Emergency Room with complaints of generalized abdominal pain th at started on the night of 11/06. The patient had a CT scan of abdomen and pelvis done on 11/07 with IV and oral contrast and reported extensive sigmoid diverticulosis without acute diverticulitis and moderate amount of stool in the colon. There was no bowel obstruction. She was also found to have a cystic mass in the left adnexa measuring 7.8 cm x 5.7 cm. She was seen by surgical services. She w as given a glycerin suppository and did have a bowel movement yesterday. No reports of any melena or bright red blood per rectum. She has not had any bowel movements yet today. She does report moving her bowels daily, may occasionally skip a day, takes Metamucil p.r.n. with good relief. She has nev er had an endoscopy or colonoscopy. The patient and family believe that the daughter spoke to Isabela and her other daughter at the bedside. They would like her mom to have a bowel regimen to prevent t he constipation. The patient denies any nausea, vomiting. No abdominal pain. No complaints of any fever, shortness of breath, or chest pain. Denies any weight loss, loss of appetite or any dysphagia or any overt GI bleed. PAST MEDICAL HISTORY: As stated above, hypertension, hyperlipidemia, chronic anemia, and osteoarthri tis of both knees. PAST SURGICAL HISTORY: Cataract surgery. SOCIAL HISTORY: Denies any cardiac or abdominal surgery. FAMILY HISTORY: Noncontributory at this time. ALLERGIES: No known drug allergies. MEDICATIONS: Reviewed as per MAR. SOCIAL HISTORY: Denies smoking, alcohol, or substance abuse. REVIEW OF SYSTEMS: Systems were reviewed with positive findings, see HPI. VITAL SIGNS: Temperature is 97.5, blood pressure 171/71, pulse 60, respirations 19, 94 on room air. LABORATORY: WBC 7.7, hemoglobin 9.2, hematocrit 27.4, platelets are 101. PT from 11/07/2016 is 11.4 , INR is 1.06, PTT is 30.0. Chem: Sodium 136, K is 4.9, BUN is 50, creatinine is 1.6. The patient did have iron level done at 69. TIBC is 323, percent saturation 21. Total bilirubin is 0.6, AST 51, ALT 30, alkaline phosphatase is 151. The patient had done on 11/07/2016, it is 42.1. i s 2.2. Urinalysis done on 11/08 showed moderate leuko esterase. Blood cultures negative x 2. Stool occult blood is negative. She had a chest x-ray on 11/07 and it showed mild pulmonary venous conges tion, cardiomegaly and question left pleural effusion. CT scan of abdomen and pelvis with IV and ora l contrast done on 11/07/2016 reports extensive sigmoid diverticulosis without CT evidence for acute diverticulitis, moderate amount of stool in the colon. No evidence of bowel obstruction, 7.8 x 5.7 c m cystic mass in the left adnexa. The differential considerations include simple cyst, cyst adenoma, and cyst adenocarcinoma. STRATEGIC ADVISOR consultation advised. Also moderate bilateral pleural effusion and mo derate ascites. PHYSICAL EXAMINATION: HEENT: Sclerae is anicteric. NECK: Supple. CARDIAC: S1, S2. LUNGS: Sounds are clear but decreased breath sounds at the bases. No rales or wheeze. ABDOMEN: With bowel sounds. Soft, nondistended, nontender on palpation. Under her breasts, she has some erythema. The patient is getting nystatin powder. EXTREMITIES: With trace edema. Positive pedal pulses. NEUROLOGIC: Awake, alert, and oriented. ASSESSMENT: This patient came with abdominal pain, status post CT scan of abdomen and pelvis, found to have a left ovarian mass with unknown etiology, as well as an elevated CA-125. She also was found to have sigmoid diverticulosis, but no diverticulitis and some constipation, anemia with improved th rombocytopenia. The patient's iron studies were okay with negative guaiac, bilateral pleural effusio n. It looks like she may have some congestive heart failure and acute renal failure. PLAN: We will start patient on MiraLax at least once a day. If patient has no bowel movement, we ca n try up to twice a day, titrate to her bowel movements and see how the patient tolerates this. Can consider Amimichelleza outpatient, but we will try the MiraLax for now. Discussed with the patient and the family, they did not want any invasive procedures. They prefer observation and monitoring. The pat ient, as I was told, did not want any transvaginal ultrasound or any aggressive treatment for the ova kim mass, and also discussed with the daughter as the patient has never had EGD or colonoscopy, they prefer conservative measures at this time. Thank you for this consult and for allowing us to participate in your patient's care. We will follow up. The patient was seen and case discussed with Dr. Hoover, who was covering rounds. Arcelia GILL cc: [phone] TT: 11/10/2016 05:03:58 Confirmation # [id number] Dictation # [id number] tn
[2016-11-10 09:17] VITALS: TEMP 97.9
[2016-11-10] MEDS: POLYETHYLENE GLYCOL 3350 17 GM/Dose PACKET PO SCH (09:24)
[2016-11-10] MEDS: Nystatin 100,000 Units/gm Topical Pow(15 gm) TOP SCH (09:25)
[2016-11-10 09:26] VITALS: BP 164/86
--- NOTE | 2016-11-10 09:52 | CP.PCM.PN ---
Subjective - Date & Time of Evaluation Date of Evaluation: 11/10/16 Time of Evaluation: 06:45 - Subjective Subjective: Pt seen and evaluates at the bedside. Pt denies abdominal pain, N/V. Claims to be eating, passing gas and having BM. Objective - Vital Signs/Intake and Output Vital Signs (last 24 hours): Temp Pulse Resp BP Pulse Ox 97.9 F 96 H 17 164/86 H 92 L 11/10/16 06:00 11/10/16 06:00 11/10/16 06:00 11/10/16 09:25 11/10/16 06:00 Intake and Output: 11/10/16 11/10/16 06:59 18:59 Intake Total 1120 Output Total 2 Balance 1118 - Medications Medications: Current Medications Acetaminophen (Tylenol 325mg Tab) 650 mg PO Q4H PRN PRN Reason: Pain, Mild (1-3) Furosemide (Lasix) 20 mg IVP DAILY [facility] Last Admin: 11/10/16 09:25 Dose: 20 mg Sodium Chloride (Sodium Chloride 0.9%) 1,000 mls @ 60 mls/hr IV .[id number] [facility] Last Admin: 11/10/16 05:18 Dose: 60 mls/hr Ketorolac Tromethamine (Toradol) 15 mg IVP Q6 PRN PRN Reason: Pain, moderate (4-7) Losartan Potassium (Cozaar) 25 mg PO DAILY [facility] Metoprolol Succinate (Toprol Xl) 50 mg PO BRK [facility] Last Admin: 11/10/16 08:01 Dose: 50 mg Nystatin (Nystop Topical Powder) 1 gm TOP BID [facility] Last Admin: 11/10/16 09:25 Dose: 1 applic Polyethylene Glycol (Miralax) 17 gm PO DAILY [facility] Last Admin: 11/10/16 09:24 Dose: 17 gm - Labs Labs: 11/10/16 07:00 11/10/16 07:00 PT 11.4 Seconds (9.9-11.8) 11/07/16 07:12 INR 1.06 (0.93-1.08) 11/07/16 07:12 APTT 30.0 Seconds (23.7-30.8) 11/07/16 07:12 - Additional Findings Additional findings: - Constitutional Appears: Non-toxic, No Acute Distress - Head Exam Head Exam: NORMAL INSPECTION - Eye Exam Eye Exam: Normal appearance - ENT Exam ENT Exam: Mucous Membranes Moist - Respiratory Exam Respiratory Exam: NORMAL BREATHING PATTERN. absent: Accessory Muscle Use, Respiratory Distress - GI/Abdominal Exam GI & Abdominal Exam: Soft. 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 Jolynn Rueda PGY1
[2016-11-10 10:41] VITALS: PULSE 66
--- NOTE | 2016-11-10 10:51 | DS ---
The patient is an 86-year-old female admitted for abdominal pain, was found to have bilateral pleural effusion, mild ascites, and a left ovarian mass. The patient was evaluated by purification operator and abdirahman roenterologist. The patient is feeling well. Her abdominal pain resolved. The patient is ambulatin g with walker. She is tolerating diet. PHYSICAL EXAMINATION: VITAL SIGNS: Stable. Temperature 97.9, pulse 96, blood pressure 160/90, and respiratory rate 17. GENERAL: She is comfortable, sitting in a reclining chair, alert, awake, oriented. HEENT: Head is normocephalic, atraumatic. Oral mucosa is moist. NECK: Supple. No neck masses. LUNGS: Decreased breath sounds in base. No rales or wheezing. HEART: With regular rhythm. ABDOMEN: Soft, nondistended, nontender. Bowel sounds are positive. No palpable masses. EXTREMITIES: With trace of edema. The patient is moving all extremities. NEUROLOGICAL: intact. DIAGNOSTIC TESTS: CBC is stable with WBC 7.4, hemoglobin 8.8, hematocrit 26.6, and platelet count 10 6. Chemistry with normal electrolytes. Her renal function is improving with BUN 48 and creatinine 1 .4, this morning. Blood cultures are negative. Urine cultures are growing small amount of bacteria, but nonspecific. ASSESSMENT: 1. Left ovarian mass of uncertain etiology with mildly elevated CA-125. 2. History of abdominal pain with constipation, resolved. 3. Anemia with thrombocytopenia with negative guaiac, and no signs of active bleeding, possibly myel odysplastic disorder. 4. Bilateral pleural effusions. 5. Hypertension. 6. Acute renal failure, probably due to diuretic and IV contrast, improving. PLAN OF TREATMENT: Case was discussed with family and the patient. The patient and family declined any aggressive diagnostic tests or treatment of left ovarian mass. Case was also discussed with gyne cologist. They declined a stress test. The patient will be discharged home today. Will continue he art-healthy diet. Continue metoprolol 50 mg daily and add losartan 25 mg daily. The patient will be monitored for anemia and renal function with laboratory test outpatient in 1-2 weeks. The patient w ill have visiting nurse and physical therapy at home. We will follow the patient with home visit. Jeannine Khoury MD cc: [phone] TT: 11/10/2016 10:50:32 jn
--- NOTE | 2016-11-10 12:26 | PN ---
DATE: 11/10/2016 REASON FOR CONSULTATION AND FOLLOWUP: Hypertension, small pleural effusion, abdominal pain. Hyperte nsion, cardiac evaluation, possible CHF. BRIEF CLINICAL HISTORY: An 86-year-old female with a past medical history significant for arthritis admitted with multiple episodes generalized abdominal pain. The patient denies any chest pain, short ness of breath, any palpitation. CAT scan shows 7.8 x 7.5 cm left adnexal mass, possible diverticula r colonic disease. PHYSICAL EXAMINATION: VITAL SIGNS: Temperature afebrile, heart rate 66, blood pressure 164/86. HEENT: PERRLA. Extraocular muscles intact. NECK: Supple. No carotid bruits. No thyromegaly. CHEST: Clear to auscultation. HEART: S1, S2 regular. ABDOMEN: Soft. EXTREMITIES: Clubbing and cyanosis negative. LABORATORY DATA: Blood workup as follows: WBC 7.4, hemoglobin 8.8, hematocrit 26.6, platelet count 106. Chemistry shows sodium 135, potassium 4.7, chloride 90, carbon dioxide 28, anion gap of 13, BUN 48, creatinine 1.4. The patient had echocardiography done yesterday, 11/09/2016, that showed ejecti on fraction 55%, trace aortic regurgitation, moderate mitral regurgitation, moderate tricuspid regurg itation, RV systolic pressure 70. IMPRESSION: Abdominal pain, probably related to diverticular colonic disease, ovarian mass, history of hypertension, arthritis, moderate mitral regurgitation, moderate tricuspid regurgitation, preserve d left ventricular function, anemia, thrombocytopenia, hypertension. RECOMMENDATION: The patient is on antibiotic, continue beta sukumar, 50 mg metoprolol succinate. Th e patient is in 25 mg of losartan started today. We will increase to 50 mg extra, change to ____ fro m tomorrow. We will follow with you. Thank you, Dr. Maria, for providing us the opportunity in taking care of the patient. Further rec ommendation depending on hospital course. We will follow with you. Nickolas Blue MD cc: [id number] TT: 11/10/2016 12:26:09 Confirmation # [id number] Dictation # [id number] tn
--- NOTE | 2016-11-10 13:30 | PN ---
DATE: 11/10/2016 SUBJECTIVE: The patient is currently seen sitting in a chair. She states she will likely be dis[facility] later today with close followup with Dr. Khoury in the office. MEDICATIONS: List reviewed. The patient is currently on losartan, Lasix is on hold, MiraLax, nystat in topical powder, normal saline was discontinued, Toprol, Toradol and Tylenol p.r.n. OBJECTIVE: INTAKE AND OUTPUT: Intake 2020, output 702. VITAL SIGNS: Weight stable at 185 pounds. Blood pressure ranging from 160-164 systolic, diastolics ranging 86-90. Pulse 66, respiratory rate 17, temperature 97.9, oxygen saturation 92%. HEENT: Shows her to be normocephalic, atraumatic. Conjunctivae are pale. Sclerae are nonicteric. NECK: Supple with no neck vein distention. CHEST: Clear to auscultation and percussion with slight decreased breath sounds at the bases. CARDIOVASCULAR: Shows a regular rate and rhythm with MR/AI/TR. ABDOMEN: Soft. Mild obesity. Bowel sounds normal. No rebound, no guarding. EXTREMITIES: Show no significant pitting edema of her lower extremity. No cyanosis, no clubbing. IMAGING: Echocardiogram done shows ejection fraction of 65% with concentric LVH, mitral regurgitatio n, aortic insufficiency, tricuspid regurgitation with moderate pulmonary hypertension. Abdominal and pelvic CT scan done on admission showed a 7.8 cm left adnexal mass. Family is not interested in an aggressive workup of this mass. Mild ascites with bilateral pleural effusions. LABORATORY DATA: White blood cell count is 7.4, hemoglobin down to 8.8, platelet count is 106,000. Chemistries show sodium of 135, potassium 4.7. Remainder of her electrolytes are normal. BUN is ramón n to 48 from 50. Baseline BUN is in the 30s. Creatinine is down from 1.6 to 1.4. Baseline creatini ne is 1.0. Urine showed white blood cells and red blood cells. MICROBIOLOGY: Urine cultures showed multiple species, not a clean catch. Blood cultures were negati ve. ASSESSMENT: 1. Acute renal failure with prerenal azotemia in the setting of IV contrast study for her CT scan an d in the setting of diuretic therapy. I did reassure patient and family that in all likelihood when these values are repeated in approximately 1-2 weeks in the outpatient setting, her BUN and creatinin e should be much closer to her baseline range. The patient will continue adequate amounts of hydrati on and avoid using diuretic therapy. 2. A 7.9 cm left adnexal mass. CA-125 was sent. The patient does not desire any aggressive followu p of this mass. 3. History of hypertension, left ventricular hypertrophy with mild valvular heart disease and pulmon michael hypertension. The patient for right now will continue losartan, beta sukumar therapy. If necess michael, a calcium channel sukumar may be added. 4. History of anemia with thrombocytopenia. This will be followed in the outpatient setting. 5. History of osteoarthritis in her weightbearing joints, especially her knees, currently stable. 6. A mild amount of ascites with bilateral pleural effusions. No workup was done for this. 7. Pulmonary hypertension appears to be stable at present. The patient is not on any medication. PLAN: 1. Agree with tentative discharge home. Perhaps repeat urine C and S in the outpatient setting. 2. Continue to monitor labs with followup chemistries in approximately 2 weeks in light of her eleva krishan BUN and creatinine. 3. Monitor blood pressure in the outpatient setting, p.r.n. low-dose calcium channel sukumar therapy added to angiotensin receptor sukumar therapy. We can use a more potent longer acting angiotensin r eceptor sukumar in the outpatient setting. 4. Continue beta sukumar therapy. 5. Limit anti-inflammatory and nonsteroidals. 6. Discussed case with her family and patient prior to her tentative discharge. Sarthak Bee MD cc: [id number] TT: 11/10/2016 13:29:33 Confirmation # [id number] Dictation # [id number] mn
--- NOTE | 2016-11-10 14:02 | PN ---
DATE: 11/10/2016 Seen and examined at the bedside earlier today. Her daughters were there. Spoke to her daughter, Ginny song. The patient did have a good bowel, soft bowel movement today. She tolerated the MiraLax. No reports of any overt GI bleed. VITAL SIGNS: Temperature is 97.9, blood pressure is 164/86, pulse 66, respirations 17. LABORATORIES: Today, WBC is 7.4, H and H is 8.8 and 26.6, platelets of 106. Sodium 135, K is 4.7, B UN 48, creatinine is 1.4. Total bilirubin is 0.5, AST 47, ALT 26, alkaline phosphatase is 144. PHYSICAL EXAMINATION: HEENT: Sclerae anicteric. NECK: Supple. CARDIAC: S1, S2. LUNGS: Decreased breath sounds but good aeration, no rales or wheeze. ABDOMEN: With bowel sounds. Soft, nontender. No rebound or guarding. ASSESSMENT: This is an 86-year-old female with history of hypertension, came with abdominal pain, wh ich is now resolved. She was also found to be constipated. That has also resolved. CT scan was don e showing diverticulosis, but no signs of diverticulitis, but she was found to have a left ovarian ma ss of unknown etiology with elevated CA-125 and also bilateral effusions and improving acute renal fa ilure. PLAN: The patient is going to be going home. The patient and family did not want any aggressive diane gnostic tests or treatment for the ovarian mass. Also discussed with them yesterday regarding they d id not want any invasive GI workup as well. Recommend to continue the MiraLax daily for regular shreya l movements, but to monitor stools. If more than 2 stools per day or too pasty, can cut back on the MiraLax. Discussed with patient's daughter Isabela and other family members at the bedside. The laura ent will be discharged home for PT and visiting nurse. The patient is going to be followed by her PC P. The patient was seen and case discussed with Dr. Hoover. Arcelia GILL cc: [id number] TT: 11/10/2016 14:01:42 Confirmation # [id number] Dictation # [id number] sn
--- NOTE | 2016-11-11 07:30 | CON ---
DATE: 11/10/2016 ADDENDUM This is an addendum to the GI progress report dictated by Arcelia Moore NP. This patient was seen and evaluated earlier. The patient was initially admitted with abdominal discomfort. The CT of the abd omen done showed ascites, cystic mass measuring about 7.8 x and severe constipation with possib le fecal impaction. The patient started moving her bowels after the enema and laxatives. No complai nts of any abdominal pain. No tenderness. Diffusely distended abdomen. PLAN: The CT was reviewed. The plan is to consider . I did discuss with the patient's Isabela eason, at length. Recommended to give her only low residue soft diet and use stool softeners p.r .n. basis. The patient can be followed with the oncologist, but the family wants mainly conservative management. Renee Hoover MD cc: [phone] TT: 11/11/2016 07:30:12 Confirmation # [id number] Dictation # [id number] en
== END 2016-11-10 12:57 | disposition home or self-care (01) | DRG 760 ==
LOC: ED 06:47 → EROBSV 07:14 → OBSVTOIN 07:14 → INTOOBSV 07:14 → UNDOADMOB 07:14 → ERH 13:09 → EROBSV 13:09 → ERH 14:31 → 3RSO 15:28 → ERH 15:28 → 3RSO 11-09 11:29 → ERH 11-09 11:29 → OBSVTOIN 11-09 11:29 → INTOOBSV 11-09 15:04
PROVIDERS: ADMIT Family Medicine; ATTEND Family Medicine
DX: N83.9 Noninflammatory disorder of ovary, fallopian tube and broad ligament, unspecified (principal); R97.1 Elevated cancer antigen 125 [CA 125]; N17.9 Acute kidney failure, unspecified; T50.8X5A Adverse effect of diagnostic agents, initial encounter; T50.1X5A Adverse effect of loop [high-ceiling] diuretics, initial encounter; I11.0 Hypertensive heart disease with heart failure; I50.9 Heart failure, unspecified; R18.8 Other ascites; D69.6 Thrombocytopenia, unspecified; I27.2 Other secondary pulmonary hypertension; D64.9 Anemia, unspecified; E78.5 Hyperlipidemia, unspecified; M17.0 Bilateral primary osteoarthritis of knee; K59.00 Constipation, unspecified; I08.1 Rheumatic disorders of both mitral and tricuspid valves

== ENCOUNTER 2017-06-26 22:03 | Inpatient (IN) | payer MEDICARE ==
--- NOTE | 2017-06-26 22:37 | ED PDOC ---
Arrival/HPI - General Chief Complaint: Abdominal Pain Time Seen by Provider: 06/26/17 22:04 Historian: Patient, Family (Sister) - History of Present Illness Narrative History of Present Illness (Text): 06/26/17 22:33 87 year old female c PMHx arthritis, hypertension, MDS/anemia, and spinal stenosis p/w nausea and vomiting associated with absence of bowel movement. Patient's sister reports nausea and vomiting after eating for the past week and absence of bowel movement for the past 2 days. Patient's sister described the vomit as a "brown stool-like fluid color". Patient's sister also reports an increase of abdominal distention more than usual. Patient reports constant burping. Denies history of kidney disease, any fever, abdominal pain, or any other complaints. PMD: DR. Oquendo Symptom Onset: Gradual Symptom Course: Worsening Activities at Onset: Light Context: Home Past Medical History - Provider Review Nursing Documentation Reviewed: Yes - Infectious Disease Hx of Infectious Diseases: None - Reproductive Menopause: Yes - Cardiac Hx Hypertension: Yes - Pulmonary Hx Chronic Obstructive Pulmonary Disease (COPD): Yes - Neurological Hx Neurological Disorder: Yes - HEENT Hx HEENT Disorder: Yes Hx Deafness: Yes - Renal Hx Renal Disorder: No - Endocrine/Metabolic Hx Endocrine Disorders: No - Hematological/Oncological Hx Blood Disorders: Yes Hx Anemia: Yes (IRON DEFICIENCY) - Integumentary Hx Dermatological Disorder: Yes (SACRAL PRESSURE ULCER 0.8 X 0.3 X 0.1 ,IASD AND MASD) - Musculoskeletal/Rheumatological Hx Musculoskeletal Disorders: Yes Hx Falls: Yes Hx Spinal Stenosis: Yes Hx Unsteady Gait: Yes (ROLLATOR) - Gastrointestinal Hx Gastrointestinal Disorders: Yes (CONSTIPATION) - Genitourinary/Gynecological Hx Genitourinary Disorders: Yes Hx Incontinence: Yes - Psychiatric Hx Substance Use: No - Anesthesia Hx Anesthesia: No Family/Social History - Physician Review Nursing Documentation Reviewed: Yes Family/Social History: No Known Family HX Smoking Status: Never Smoked Hx Alcohol Use: No Hx Substance Use: No Allergies/Home Meds Allergies/Adverse Reactions: Allergies No Known Allergies Allergy (Verified 06/26/17 22:26) Home Medications: Home Meds Medication Instructions Recorded Confirmed Metoprolol Succinate XL [Toprol XL] 50 mg PO DAILY 11/07/16 06/26/17 Mometasone/Formoterol [Dulera 200 13 gm IH BID 06/26/17 06/26/17 Mcg/5 Mcg Inhaler] Review of Systems - Physician Review All systems were reviewed & negative as marked: Yes - Review of Systems Constitutional: absent: Fevers Gastrointestinal: Stool Changes (constipation), Nausea, Vomiting, Other (burping ). absent: Abdominal Pain Physical Exam - Physical Exam Narrative Physical Exam (Text): Constitutional: No acute distress. Head: Normocephalic. Atraumatic. Eyes: PERRL. ENT: Moist mucous membranes. Neck: Supple. Cardiovascular: Regular rate. Chest: No tenderness. Respiratory: Clear to auscultation bilaterally. GI: Soft. Nontender. Abdominal distension. Back: No CVA tenderness. Musculoskeletal: No tenderness. Pitting edema bilateral lower extremities. Skin: No rash. Neurologic: Alert, no focal deficit. Vital Signs Reviewed: Yes Vital Signs Temp Pulse Resp BP Pulse Ox 06/27/17 03:58 98.8 F 84 16 131/57 L 98 06/27/17 00:48 87 16 128/60 98 06/26/17 22:26 99.1 F 68 20 133/57 L 100 Temperature: Afebrile Blood Pressure: Normal Pulse: Regular Respiratory Rate: Normal Appearance: Positive for: Non-Toxic Pain Distress: None Mental Status: Positive for: Alert and Oriented X 3 Medical Decision Making ED Course and Treatment: 06/26/17 22:34 Plan: -- Labs -- CT ABD & Pelvis W/O PO or IV Contrast -- Reassess and disposition Progress Notes: EKG Sinus rhythm, 70 bpm, no ST elevations EXAM: CT Abdomen and Pelvis Without Intravenous Contrast Dictated and Authenticated by: Tyrese Pendleton MD 06/26/2017 11:54 PM IMPRESSION: 1. Large amount of ascites. 2. Bilateral pleural effusions and compressive atelectasis, right greater than left. 3. Large amount retained stool. 4. Thick walled urinary bladder with gas. Recent Hill catheter, cystitis, or underlying fistula. 5. Remainder of findings as above 06/27/17 03:12 Patient treated with miralax, Zofran, mag citrate, dulcolax suppository but without any bowel movement, and patient continues to have intractible vomiting. Case discussed Dr. Ramirez covering for Dr. Maria who is aware and recommends admission to hospitalist. 06/27/17 03:[address] Perkins who is aware and agrees with the plan. Accepts patient onto hospitalist service. - Lab Interpretations Lab Results: 06/26/17 22:53 06/26/17 22:53 Lab Results 06/26/17 22:53: Blood Type O NEGATIVE, Antibody Screen Negative, BBK History Checked No verified bt 06/26/17 22:53: Sodium 138, Potassium 5.4 H, Chloride 102, Carbon Dioxide 30, Anion Gap 11, BUN 69 H, Creatinine 1.6 H, Est GFR ( Amer) 37, Est GFR ( Non-Af Amer) 30, Random Glucose 102, Calcium 10.2, Total Bilirubin 1.0, AST 91 H , ALT 54, Alkaline Phosphatase 226 H, Total Protein 7.1, Albumin 3.7, Globulin 3.4, Albumin/Globulin Ratio 1.1, Lipase 320 H 06/26/17 22:53: PT 11.4, INR 1.04, APTT 33.5 06/26/17 22:53: WBC 7.6, RBC 2.81 L, Hgb 8.8 L, Hct 27.6 L, MCV 98.2, MCH 31.3, MCHC 31.9, RDW 20.1 H, Plt Count 117 L, Gran % 54.9, Lymph % (Auto) 36.6 H, Harlan % (Auto) 7.4 H, Eos % (Auto) 0.8 L, Baso % (Auto) 0.3, Gran # 4.15, Lymph # 2.8, Harlan # 0.6, Eos # 0.1, Baso # 0.02 I have reviewed the lab results: Yes - RAD Interpretation Radiology Orders: 06/26/17 22:36 ABD & PELVIS W/O PO OR IV CONT [CT] Stat - Medication Orders Current Medication Orders: Discontinued Medications Bisacodyl (Dulcolax) 10 mg RC STAT STA Stop: 06/27/17 00:37 Last Admin: 06/27/17 00:58 Dose: 10 mg Magnesium Citrate (Citrate Of Mag) 300 ml PO ONCE ONE Stop: 06/27/17 00:43 Last Admin: 06/27/17 00:59 Dose: 300 ml Ondansetron HCl (Zofran Inj) 8 mg IVP STAT STA Stop: 06/27/17 00:42 Last Admin: 06/27/17 00:58 Dose: 8 mg IVP Administration Document 06/27/17 00:58 LAC (Rec: 06/27/17 00:59 LAC [id number]) Charges for Administration # of IVP Administrations 1 Ondansetron HCl (Zofran Inj) 4 mg IVP STAT STA Stop: 06/27/17 03:06 Last Admin: 06/27/17 03:17 Dose: 4 mg IVP Administration Document 06/27/17 03:17 ND (Rec: 06/27/17 03:17 ND [id number]) Charges for Administration # of IVP Administrations 1 Polyethylene Glycol (Miralax) 17 gm PO STAT STA Stop: 06/27/17 00:37 Last Admin: 06/27/17 00:58 Dose: 17 gm - Scribe Statement The provider has reviewed the documentation as recorded by the Sharan Azul Provider Scribe Attestation: All medical record entries made by the Sharan were at my direction and personally dictated by me. I have reviewed the chart and agree that the record accurately reflects my personal performance of the history, physical exam, medical decision making, and the department course for this patient. I have also personally directed, reviewed, and agree with the discharge instructions and disposition. Disposition/Present on Arrival - Present on Arrival Any Indicators Present on Arrival: Yes History of DVT/PE: No History of Uncontrolled Diabetes: No Urinary Catheter: No History of Decub. Ulcer: Yes History Surgical Site Infection Following: None - Disposition Have Diagnosis and Disposition been Completed?: Yes Diagnosis: Constipation, Ascites, Intractable vomiting Disposition: HOSPITALIZED Disposition Time: 00:10 Patient Plan: Discharge Patient Problems: Current Active Problems Problem Status Onset Ascites Acute Constipation Acute Condition: STABLE
[2017-06-26 23:34] LABS: ALB/GLOB RATIO 1.1 (1.1-1.8); CALCIUM 10.2 mg/dL (8.4-10.5); POTASSIUM 5.4 mmol/L (3.6-5.0); TOTAL PROTEIN 7.1 g/dL (5.8-8.3)
[2017-06-26 23:35] LABS: BASO # 0.02 K/mm3 (0.0-2.0); BASO % 0.3 % (0.0-3.0); EOS # 0.1 (0.0-0.7); EOS % 0.8 % (1.5-5.0); GRAN # 4.15 (1.4-6.5); GRAN % 54.9 % (50.0-68.0); HEMATOCRIT 27.6 % (36.0-48.0); LYMPH # 2.8 (1.2-3.4); LYMPH % 36.6 % (22.0-35.0); MEAN CELL VOLUME 98.2 fl (80.0-105.0); MEAN CORPUSCULAR HEMOGLOBIN 31.3 pg (25.0-35.0); MEAN CORPUSCULAR HGB CONC 31.9 g/dl (31.0-37.0); MONO # 0.6 (0.1-0.6); MONO % 7.4 % (1.0-6.0); PLATELET COUNT 117 10^3/uL (120.0-450.0); RED CELL DISTRIBUTION WIDTH 20.1 % (11.5-14.5); WHITE BLOOD COUNT 7.6 10^3/ul (4.5-11.0)
[2017-06-26 23:47] LABS: INR 1.04 (0.93-1.08); PARTIAL THROMBOPLASTIN TIME 33.5 Seconds (25.1-36.5)
--- NOTE | 2017-06-26 23:54 | CT ---
EXAM: CT Abdomen and Pelvis Without Intravenous Contrast CLINICAL HISTORY: 79 years old, male; Signs and symptoms; Nausea; Cough; Symptoms not specified; Patient HX: Nausea accompanied with cough. Pt trying to cough up sputum; Additional info: Does not follow instructions- difficulty holding still for exam TECHNIQUE: Axial computed tomography images of the abdomen and pelvis without intravenous contrast. All CT scans at this facility use one or more dose reduction techniques, viz.: automated exposure control; ma/kV adjustment per patient size (including targeted exams where dose is matched to indication; i.e. head); or iterative reconstruction technique. Coronal and sagittal reformatted images were created and reviewed. COMPARISON: No relevant prior studies available. FINDINGS: Artifacts: Motion artifact. Lower thorax: Moderate cardiomegaly. Small to moderate right pleural effusion. Small left pleural effusion. Compressive atelectasis at lung bases. ABDOMEN: Liver: Nodular contour to liver or suggestive of cirrhosis. Gallbladder and bile ducts: Unremarkable. No calcified stones. No ductal dilation. Pancreas: Unremarkable. No ductal dilation. Spleen: Unremarkable. No splenomegaly. Adrenals: Unremarkable. No mass. Kidneys and ureters: Unremarkable. No obstructing stones. No hydronephrosis. Stomach and bowel: Fluid-filled, mildly dilated stomach. No small bowel obstruction. Large amount of retained stool in colon. Appendix: No findings to suggest acute appendicitis. PELVIS: Bladder: Thick walled urinary bladder with small amount of gas, which may be related to recent Hill catheter, cystitis, or underlying fistula. No stones. Reproductive: Unremarkable as visualized. ABDOMEN and PELVIS: Intraperitoneal space: Large amount of ascites. No free air. Bones/joints: Diffuse subcutaneous soft tissue edema. Degenerative changes both hips. Diffuse spinal degenerative changes. Scoliosis. Osteoporosis. No acute fracture. No dislocation. Soft tissues: See above. Vasculature: Atherosclerotic vascular disease. 3.5 CM infrarenal abdominal aortic aneurysm. Lymph nodes: Unremarkable. No enlarged lymph nodes. IMPRESSION: 1. Large amount of ascites. 2. Bilateral pleural effusions and compressive atelectasis, right greater than left. 3. Large amount retained stool. 4. Thick walled urinary bladder with gas. Recent Hill catheter, cystitis, or underlying fistula. 5. Remainder of findings as above.
[2017-06-27] MEDS ORDERED: POLYETHYLENE GLYCOL 3350 17 GM/Dose PACKET PO STA (00:36)
[2017-06-27] MEDS ORDERED: Magnesium Citrate Oral SOL (300 ml) PO ONE (00:42)
[2017-06-27] MEDS ORDERED: Sodium Chloride 0.9% 1,000 ML IV SCH ×2 (04:15→10:17)
--- NOTE | 2017-06-27 04:17 | CP.PCM.HP ---
History of Present Illness - History of Present Illness History of Present Illness: 87 year old female with past medical history of arthritis, hypertension, MDS/ anemia, and spinal stenosis presents with nausea and vomiting in addition to no bowel movement for the past two days. History was obtained bedside by the patients daughter. The daughter states the patients started vomiting a week ago and has been vomiting on and off for the past several days. Today she vomited more than 5 times. She described the vomit as "brown stool-like fluid color" but denied any blood. Due to the nausea and vomiting the patient has not been able to eat much, her last meal was some oatmeal this morning. Patients last bowel movement was on and was regular. Patient did not complain of any shortness of breath, chest pain, abdominal pain, fever, chills, or any other complaints. Primary Doctor: Dr. Oquendo PMHx: arthritis, hypertension, MDS/anemia, and spinal stenosis PSHx: Allergies: NKDA Social: denies toboacco, alcohol, or drug use Medications: Metoprolol 50, Dulera Present on Admission - Present on Admission Any Indicators Present on Admission: No Review of Systems - Constitutional Constitutional: absent: Anorexia, Chills, Fever, Malaise, Night Sweats - EENT Eyes: absent: Blurred Vision, Change in Vision Ears: absent: Disequilibrium, Dizziness Nose/Mouth/Throat: absent: Nasal Congestion, Sore Throat - Cardiovascular Cardiovascular: absent: Chest Pain, Dyspnea, Lightheadedness - Respiratory Respiratory: absent: Cough, Dyspnea - Gastrointestinal Gastrointestinal: Belching, Constipation, Nausea, Vomiting. absent: Abdominal Pain, Diarrhea - Genitourinary Genitourinary: absent: Change in Urinary Stream, Difficulty Urinating - Musculoskeletal Musculoskeletal: absent: Arthralgias, Tingling - Neurological Neurological: absent: Confusion, Dizziness, Numbness, Tingling Past Patient History - Infectious Disease Hx of Infectious Diseases: None - Past Social History Smoking Status: Never Smoked - CARDIAC Hx Hypertension: Yes - PULMONARY Hx Chronic Obstructive Pulmonary Disease (COPD): Yes - NEUROLOGICAL Hx Neurological Disorder: Yes - HEENT Hx HEENT Problems: Yes Hx Deafness: Yes - RENAL Hx Chronic Kidney Disease: No - ENDOCRINE/METABOLIC Hx Endocrine Disorders: No - HEMATOLOGICAL/ONCOLOGICAL Hx Blood Disorders: Yes Hx Anemia: Yes (IRON DEFICIENCY) - INTEGUMENTARY Hx Dermatological Problems: Yes (SACRAL PRESSURE ULCER 0.8 X 0.3 X 0.1 ,IASD AND MASD) - MUSCULOSKELETAL/RHEUMATOLOGICAL Hx Musculoskeletal Disorders: Yes Hx Falls: Yes Hx Spinal Stenosis: Yes Hx Unsteady Gait: Yes (ROLLATOR) - GASTROINTESTINAL Hx Gastrointestinal Disorders: Yes (CONSTIPATION) - GENITOURINARY/GYNECOLOGICAL Hx Genitourinary Disorders: Yes Hx Incontinence: Yes - PSYCHIATRIC Hx Substance Use: No - SURGICAL HISTORY Hx Surgeries: No - ANESTHESIA Hx Anesthesia: No Meds Home Medications: Home Medication List Medication Instructions Recorded Confirmed Type Ondansetron ODT [Zofran ODT] 4 mg PO Q8 #12 odt 06/27/17 Rx Allergies/Adverse Reactions: Allergies Allergy/AdvReac Type Severity Reaction Status Date / Time No Known Allergies Allergy Verified 06/26/17 22:26 Physical Exam - Constitutional Appears: Non-toxic, No Acute Distress - Head Exam Head Exam: ATRAUMATIC, NORMAL INSPECTION, NORMOCEPHALIC - Eye Exam Eye Exam: PERRL - ENT Exam ENT Exam: Mucous Membranes Moist, Normal Exam - Neck Exam Neck exam: Negative for: Lymphadenopathy, Tenderness - Respiratory Exam Respiratory Exam: Clear to Auscultation Bilateral, NORMAL BREATHING PATTERN - Cardiovascular Exam Cardiovascular Exam: REGULAR RHYTHM, +S1, +S2 - GI/Abdominal Exam GI & Abdominal Exam: Distended - Extremities Exam Extremities exam: Positive for: pedal edema, pedal pulses present - Neurological Exam Neurological exam: Alert, Oriented x3 - Psychiatric Exam Psychiatric exam: Normal Affect - Skin Skin Exam: Normal Color, Warm Results - Vital Signs Recent Vital Signs: Last Vital Signs Temp 98.8 F 06/27/17 03:58 Pulse 84 06/27/17 03:58 Resp 16 06/27/17 03:58 BP 131/57 L 06/27/17 03:58 Pulse Ox 98 06/27/17 03:58 - Labs Result Diagrams: 06/26/17 22:53 06/26/17 22:53 Assessment & Plan - Assessment and Plan (Free Text) Assessment: 7 year old female with past medical history of arthritis, hypertension, MDS/ anemia, and spinal stenosis presents with nausea and vomiting in addition to no bowel movement for the past two days. Plan: 1. Intractable Nausea and Vomiting -EKG ordered and obtained, pending official read -CBC and CMP ordered and reviewed -NPO except meds -Zofran -NS@80 -possible GI consult in future 2. Constipation -dulcolax given -miralax given -patient could not tolerate magnesium citrate -CT Abdomen Pelvis: 1. Large amount of ascites. 2. Bilateral pleural effusions and compressive atelectasis, right greater than left. 3. Large amount retained stool. 4. Thick walled urinary bladder with gas. Recent Hill catheter, cystitis, or underlying fistula. 5. Remainder of findings as above -tap water enema -possible fecal disempaction if needed 3. Elevated BUN/Cr -BUN: 69 Cr: 1.6 -will hydrate with fluids -possible nephrology consult in future 4. Hyperkalemia -K 5.4 -kayexalate given -will continue to monitor -no signs of cardiac arhrythmia on KE, pending official read 5.GI/DVT Prophylaxis -protonix -sequential compression device
[2017-06-27] MEDS ORDERED: Sod Polystyrene Sulf 15 gm/60 ml Susp PO STA (04:32)
[2017-06-27 06:24] VITALS: BMI 13.8
[2017-06-27] MEDS: Pantoprazole 40 mg EC Tab PO SCH (06:29)
[2017-06-27] MEDS: Metoprolol Succinate 50 mg XL Tab PO SCH (09:52)
[2017-06-27 12:31] LABS: BASO # 0.02 K/mm3 (0.0-2.0); BASO % 0.3 % (0.0-3.0); EOS % 0.4 % (1.5-5.0); GRAN # 4.97 (1.4-6.5); GRAN % 64.6 % (50.0-68.0); HEMATOCRIT 25.2 % (36.0-48.0); LYMPH # 2.1 (1.2-3.4); LYMPH % 27.7 % (22.0-35.0); MEAN CELL VOLUME 98.8 fl (80.0-105.0); MEAN CORPUSCULAR HEMOGLOBIN 31.4 pg (25.0-35.0); MEAN CORPUSCULAR HGB CONC 31.7 g/dl (31.0-37.0); MEAN PLATELET VOLUME 11.9 fl (7.0-11.0); MONO # 0.5 (0.1-0.6); PLATELET COUNT 127 10^3/uL (120.0-450.0); RED CELL DISTRIBUTION WIDTH 20.4 % (11.5-14.5); WHITE BLOOD COUNT 7.7 10^3/ul (4.5-11.0)
[2017-06-27 12:37] LABS: ALB/GLOB RATIO 1.1 (1.1-1.8); BILIRUBIN,TOTAL 0.8 mg/dL (0.2-1.3); POTASSIUM 5.5 mmol/L (3.6-5.0); TOTAL PROTEIN 6.6 g/dL (5.8-8.3)
[2017-06-27] MEDS: POLYETHYLENE GLYCOL 3350 17 GM/Dose PACKET PO SCH ×2 (17:45→22:00)
[2017-06-27 18:12] LABS: NEUTROPHIL 68 % (50.0-70.0)
[2017-06-27 18:13] LABS: LARGE PLATELETS PRESENT; NUCLEATED RED BLOOD CELL 3 %
[2017-06-28] MEDS: POLYETHYLENE GLYCOL 3350 17 GM/Dose PACKET PO SCH ×2 (02:03→06:30)
[2017-06-28] MEDS: Pantoprazole 40 mg EC Tab PO SCH (05:27)
[2017-06-28 06:51] LABS: HEMATOCRIT 25.1 % (36.0-48.0); MEAN CELL VOLUME 98.8 fl (80.0-105.0); MEAN CORPUSCULAR HEMOGLOBIN 30.7 pg (25.0-35.0); MEAN CORPUSCULAR HGB CONC 31.1 g/dl (31.0-37.0); PLATELET COUNT 126 10^3/uL (120.0-450.0); RED CELL DISTRIBUTION WIDTH 20.4 % (11.5-14.5); WHITE BLOOD COUNT 5.7 10^3/ul (4.5-11.0)
[2017-06-28 07:15] LABS: BILIRUBIN,TOTAL 0.9 mg/dL (0.2-1.3); CALCIUM 9.7 mg/dL (8.4-10.5); TOTAL PROTEIN 6.5 g/dL (5.8-8.3)
[2017-06-28 07:22] LABS: POTASSIUM 5.7 mmol/L (3.6-5.0)
[2017-06-28] MEDS: MOMETASONE IH SCH ×2 (10:00→19:20)
[2017-06-28] MEDS: FORMOTEROL IH SCH ×2 (10:00→19:20)
[2017-06-28] MEDS ORDERED: FORMOTEROL IH SCH (10:00)
[2017-06-28] MEDS ORDERED: MOMETASONE IH SCH (10:00)
--- NOTE | 2017-06-28 10:02 | CON ---
DATE: 06/27/2017 REASON FOR CONSULTATION: Abdominal distension, constipation, abdominal pain, nausea, and vomiting. HISTORY OF PRESENT ILLNESS: This 87-year-old patient with past medical history of arthritis, hypertension, anemia, and spinal stenosis who presented with a history of ovarian lesion, cystic lesion, presented with nausea and vomiting after eating for the past few days. She also complains of having worsening of the constipation. The patient did vomit out brown like fluid. Concerned and brought to the emergency room. The family also noticed the progressive distention of the abdomen for the past few days. The patient was in the hospital in October, and she was found to have diverticulosis and also found to have a large left adnexal lesion measuring about 7.8 x 5.7 cm, present with the increased CEA level. The patient's family did not want any workup for that and the patient was managed for constipation with laxatives. The patient was also seen with the surgeon during that time. PAST MEDICAL HISTORY: Other past medical history as above. History of arthritis of the both knees and history of status post cataract surgery. SOCIAL HISTORY: Denies smoking or alcohol. FAMILY HISTORY: Noncontributory. ALLERGIES: NO KNOWN DRUG ALLERGIES. REVIEW OF SYSTEMS: Positive as above. Other systems reviewed and negative. PHYSICAL EXAMINATION GENERAL: The patient is lying on the bed, not in acute distress. VITAL SIGNS: Temperature is 97.7, pulse is 91, blood pressure is 148/49, and respirations are 20. HEENT: Atraumatic and anicteric. NECK: Supple. HEART: S1 and S2 heard. LUNGS: Bilateral air entry present, but reduced in the base. ABDOMEN: Distended. Ascites present. EXTREMITIES: Bilateral edema present. NEUROLOGIC: Alert and oriented, moves all the extremities. LABORATORY DATA: Hemoglobin is 8.0, hematocrit is 25.2, WBC is 7.7, and platelets are 127. Chemistry showed a BUN of 68, creatinine of 2.0, potassium of 5.5, and sodium of 137. AST is 77, ALT is 57, and alkaline phosphatase is 212. DIAGNOSTIC DATA: The CT scan of the abdomen and pelvis done and was reviewed. The CAT scan reported large ascites with a large adnexal lesion, the lesion is still noticed. IMPRESSION: This 87-year-old patient was admitted with a large ascites, adnexal cystic lesion, with moderate amount of stool throughout the colon, the likely cause to be considered as to rule out malignancy, especially rule out ovarian malignancy in view of the large adnexal cystic lesion with ascites. Other occult malignancies also should be considered in view of this new onset of ascites. I did compare the previous CAT scan, there was no ascites noticed in the previous CAT scan. The patient has episodes of vomiting. Does not appear to have full obstruction. RECOMMENDATIONS: We would recommend now is: 1. MiraLax. 2. Keep the patient on a clear liquid n.p.o. except medication. If the vomiting subsidies then we will start the patient on liquid diet. 3. The patient did have enemas before. I did have a discussion with the patient's family. The plan is to consider the CT-guided paracentesis to take the fluid out for analysis for cytology, for cell count and chemistry in view of this new ascites. I spoke with the patient's daughter and they want more conservative management. They are not inclined about any other invasive tests, but they are agreeable for this paracentesis. We will discuss with the medical team regarding this patient. Thank you very much for allowing us to participate in the care of the patient. Renee Hoover MD
--- NOTE | 2017-06-28 10:21 | CARD ---
APPROVED REPORT EKG Measurement Heart [id number] <Conclusion> Sinus rhythm with premature supraventricular complexes Possible Anterior infarct, age undetermined Abnormal ECG
[2017-06-28] MEDS: Metoprolol Succinate 50 mg XL Tab PO SCH (10:27)
--- NOTE | 2017-06-28 15:55 | RAD ---
HISTORY: Ascites. Pleural Effusion on CT. COMPARISON: 11/07/2016. FINDINGS: LUNGS: There is mild pulmonary venous congestion PLEURA: Small left pleural effusion. No significant right pleural effusion identified, no pneumothorax apparent. CARDIOVASCULAR: There is persistent moderate cardiomegaly. OSSEOUS STRUCTURES: There is severe degenerative osteoarthrosis in the glenohumeral joints and a deformity in the right glenohumeral joint. VISUALIZED UPPER ABDOMEN: Normal. OTHER FINDINGS: None. IMPRESSION: Persistent moderate cardiomegaly, mild pulmonary venous congestion and small left pleural effusion concerning for mild congestive heart failure.
[2017-06-28] MEDS ORDERED: DOPamine 400mg/250ml D5W 400 MG/250 ML BAG IV PRN ×4 (16:10→16:55)
[2017-06-28] MEDS ORDERED: Albuterol 0.5% Inhal Sol (2.5 mg/0.5 ml) UD IH STA (17:03)
--- NOTE | 2017-06-28 17:58 | CON ---
DATE: 06/28/2017 REASON FOR CONSULTATION: Acute kidney injury, hyperkalemia, decreased urine output. HISTORY OF PRESENTING ILLNESS: An 87-year-old lady was brought to the emergency room by family members because of abdominal pain. Also complaining of constipation. No bowel movement for 48 hours prior to presentation. The patient has a history of sigmoid diverticulosis, diverticulitis, 7.8 cm cystic mass in the left adnexa, bilateral pleural effusions, ascites. The patient had a similar episode of abdominal pain and constipation in October. The patient was found to have an elevated potassium of 5.4, elevated BUN of 69 and a creatinine of 1.6 at the time of admission. Subsequently, her potassium today is 5.7, BUN 74 and creatinine 2.5, hence consultation is requested. Additionally, the patient has been reported to have decreased urine output. PAST MEDICAL AND SURGICAL HISTORY: Diverticulosis, diverticulitis, severe osteoarthritis, hypertension, severe anemia, spinal stenosis, 7.8 cm cystic ovarian lesion?, ascites, pleural effusions, edema. FAMILY HISTORY: Noncontributory. SOCIAL HISTORY: No smoking, no alcohol use, no IV drug abuse. ALLERGIES: NO KNOWN DRUG ALLERGIES. MEDICATIONS AT HOME: Dulera, Toprol-XL 50 mg daily, Zofran. REVIEW OF SYSTEMS: The patient complains of abdominal pain, abdominal discomfort, lower extremity edema, dyspnea on exertion, rest unremarkable. PHYSICAL EXAMINATION: GENERAL: Obese, elderly lady, sitting in chair. VITAL SIGNS: Blood pressure 116/58, heart rate 98, respiratory rate 20, temperature 98.9. HEENT: Normocephalic, atraumatic, positive pallor. NECK: Supple, no JVD. LUNGS: Bilateral equal entry, bilateral equal expansion, decreased breath sounds at bases. CARDIAC: S1, S2, regular rate and rhythm, no murmur, no rubs. ABDOMEN: Obese, distended, firm, diffuse tenderness, bowel sounds present. EXTREMITIES: 3+ pitting edema of the lower extremities. INTAKE AND OUTPUT: Not charted. LABORATORY DATA: WBC 5.7, hemoglobin 7.8, hematocrit 25, platelets 126, MCV 98.8. Sodium 135, potassium 5.7, chloride 101, CO2 24, BUN 74, creatinine 2.5, glucose 94, calcium 9.7, AST 74, ALT 55. BNP 8690, albumin 3.3, lipase 320. CT of the abdomen and pelvis, large amount of ascites, bilateral pleural effusions with compressive atelectasis, large amount of retain stool, thick wall bladder with gas, nodular contour of the liver suggestive of cirrhosis. ASSESSMENT AND PLAN: 1. Acute kidney injury, superimposed and chronic kidney disease stage III. 2. Hyperkalemia secondary to acute kidney injury. 3. Volume overload, elevated BNP, ascites, bilateral pleural effusions. 4. Severe anemia. 5.? Cirrhosis of the liver. 6.? Occult malignancy. PLAN: 1. Discontinue IV fluids. 2. Okay with renal dose dopamine. 3. Change Lasix to 80 mg IV q.12. 4. Monitor potassium. 5. Bowel regimen for constipation as per GI recommendations. 6. Limit use of Kayexalate 7. Agree with plans for paracentesis for therapeutic and diagnostic value. Thank you for the courtesy of this consultation. We will follow this patient with you. Joslyn Vivas MD
--- NOTE | 2017-06-28 19:47 | CT ---
EXAM: CT Abdomen and Pelvis Without Intravenous Contrast EXAM DATE/TIME: 06/28/2017 6:06 PM CLINICAL HISTORY: 87 years old, female; Pain and signs and symptoms; Nausea and vomiting; Abdominal pain; Acute; Additional info: Abd pain, n/v TECHNIQUE: Axial computed tomography images of the abdomen and pelvis without intravenous contrast. All CT scans at this facility use one or more dose reduction techniques, viz.: automated exposure control; ma/kV adjustment per patient size (including targeted exams where dose is matched to indication; i.e. head); or iterative reconstruction technique. Coronal and sagittal reformatted images were created and reviewed. COMPARISON: CT - ABD PELVIS W/O PO OR IV CONT 2017-06-26 23:04 FINDINGS: Lower thorax: The heart is mildly enlarged. There are coronary artery calcifications. There is decreased attenuation of blood pool relative to myocardium. There is a small hiatal hernia. There are small bilateral pleural effusions. There is partial consolidation of the lower lobes. There is linear atelectasis/scarring. ABDOMEN: Liver: Hepatic contours are nodular. Gallbladder and bile ducts: Gallbladder is only partially distended. There may be small stones. Common duct is prominent. Pancreas: Pancreas is atrophic. Spleen: unremarkable Adrenals: There is bilateral adrenal thickening left greater than right. Kidneys and ureters: Kidneys and ureters are unremarkable. Stomach and bowel: Stomach is partially distended with an air-fluid level. Rotation is normal. Small bowel is now mildly dilated. There are air fluid levels. Fluid and air are seen throughout the small bowel. There is fluid in the terminal ileum. Appendix is not visualized. There is interval increase in distention of the transverse colon. There is mild splenic flexure wall thickening. There is sigmoid diverticulosis. Appendix: See stomach and bowel PELVIS: Bladder: Bladder is almost completely empty. There is a Hill catheter. There is a small amount of air in the bladder. Reproductive: Uterus is atrophic. Adnexa are unremarkable. ABDOMEN and PELVIS: Intraperitoneal space: There is ascites in the abdomen and pelvis.There is no free air. Bones/joints: Bony structures are osteopenic.There are degenerative changes in the osseus structures. There is a convex left lumbar curve. Soft tissues: There is body wall edema. Vasculature: There are vascular calcifications. Lymph nodes: Lack of contrast and paucity of intraperitoneal fat limits evaluation of retroperitoneal nodes. IMPRESSION: Cirrhosis and ascites; possible gallstones; increasing small bowel distention more suggestive of ileus than obstruction; possible splenic flexure colitis; diverticulosis without CT findings of diverticulitis; possible anemia; continued pleural effusions with basilar airspace disease atelectasis and/or infiltrate Additional findings as described above.
--- NOTE | 2017-06-28 22:50 | CON ---
DATE: REASON FOR DICTATION: Addendum to the initial consult dictated by Dr. Little, this morning. REASON FOR ADDENDUM: called to reevaluate the patient for possible IV dopamine and dobutamine because the patient has renal insufficiency and hyperkalemia. The patient is reassessed again. I spoke to the family, made the arrangement to transfer to the telemetry and we will start low-dose of dopamine. The patient has very good LV function and blood pressure also 116/58, but SMA-7 shows BUN 74, creatinine 2.5 with potassium 5.7. The patient's last echocardiographic done in 11/09/2016 that shows ejection fraction of 65%, trace aortic regurgitation, moderate mitral regurgitation, and moderate tricuspid regurgitation, and does not need Dobutrex, but the patient may get the benefit from renal perfusion, if the patient's hepatorenal syndrome or low perfusion state, so we will start renal dose of dopamine as the patient has elevated AST and ALT and also elevated BNP, and we will continue diuretics. Discussed with the family. We will transfer to telemetry. Nickolas Blue MD
--- NOTE | 2017-06-28 22:53 | CON ---
GENITOURINARY CONSULTATION DATE OF SERVICE: 06/28/2017 CHIEF COMPLAINT: Anasarca, inability to insert Hill catheter. HISTORY OF PRESENT ILLNESS: This is an 87-year-old female who was admitted for nausea and vomiting. She has had very poor output. She has anasarca and nurses were unable to insert a Hill catheter after trying several times and Urology consultation was requested. According to the nurses, a bladder scan showed 200 mL in the bladder on scanning. PAST MEDICAL HISTORY: Significant for hypertension, COPD. She has a history of spinal stenosis. She also has a history of iron-deficiency anemia. ALLERGIES: SHE HAS NO ALLERGIES. REVIEW OF SYSTEMS: She has no symptoms referable to her head, eyes, ears, nose, and throat. She has weakness. She is on oxygen. She seems somewhat uncomfortable. She has significant amount of fluid retention. PHYSICAL EXAMINATION: VITAL SIGNS: Show her to be afebrile, blood pressure 119/50, pulse 85, respirations 18. HEENT: She is hard of hearing, significant deafness. ABDOMEN: She has no rebound or guarding. She has ascites. EXTREMITIES: She has 4+ edema. No purpura. LABORATORY DATA: Lab work shows hemoglobin 7.8, white count 5700. Her albumin is 3.3. Creatinine is 2.5 with the BUN of 74. ASSESSMENT AND PLAN: I placed a Hill catheter, 16-Bel[place]ian. The meatus is recessed into the vagina. There was very small amount of urine obtained, not the 200 mL the bladder scan showed. I think, it is reflecting the ascites that she has. The Hill catheter was secured and the rest of care will be taken over by Medicine. The plan is to diurese her according to the nurses. Chris Muller MD
--- NOTE | 2017-06-28 23:13 | CARD ---
APPROVED REPORT EKG Measurement Heart [id number] <Conclusion> Sinus rhythm with sinus arrhythmia with 1st degree AV block Possible Anterior infarct, age undetermined Abnormal ECG
--- NOTE | 2017-06-29 00:33 | PN ---
DATE: SUBJECTIVE: The patient was seen at bedside this morning. She was admitted for nausea and vomiting and severe abdominal distension for the past 2 days. The patient is not feeling any better. She continues with small amount of vomiting. She was able to have clear liquids yesterday and today. She denies any abdominal pain. There is very litle urine output . She denies any shortness of breath or chest pain. PHYSICAL EXAMINATION: VITAL SIGNS: This morning showed temperature of 97.9, pulse of 98 and regular, blood pressure of 116/58, respiratory rate of 20, and oxygen saturation was 99%. GENERAL: The patient was uncomfortable, pale, ill looking, and in no form of acute distress. HEENT: Oral mucosa was slightly dry. NECK: Supple. LUNGS: With decreased breath sounds. No rales. HEART: With regular rhythm and rate. ABDOMEN: Distended, tense with some generalized tenderness. Bowel sounds diminished. EXTREMITIES: With 2+ edema, extending up to the groin area. LABORATORY DATA: CBC with WBC of 5.7, hemoglobin dropped to 7.8 this morning, hematocrit of 25.1 and platelet count of 126. Chemistry with hyperkalemia, potassium of 5.7, sodium is normal at 135, BUN is 74 this morning and creatinine is 2.5. She has elevated liver enzymes with AST of 74, ALT of 65 and alkaline phosphatase of 207. The patient has elevated BNP 8600. DIAGNOSTIC TESTS: Chest x ray this morning shows cardiomegaly with signs of vascular congestion consistent with CHF. CT scan of the abdomen and pelvis yesterday showed bilateral pleural effusion, large amount of ascites, large amount of retained stool, and no mention of left adnexal mass seen on CT scan in October. ASSESSMENT: 1. An 87-year-old female with large ascites and anasarca , etiology to be determined, must rule out malignancy, possibly cardiac etiology related to congestive heart failure, possibly liver cirrhosis. 2. Abnormal liver anatomy, possibly liver cirrhosis. 3. Acute and chronic renal failure. 4. Congestive heart failure with elevated BNP and abnormal chest x ray. 5. Anemia. PLAN OF TREATMENT: Case was discussed with hot strip finisher, I will hold paracentesis for now. We will have the patient evaluated by process trainer and religious education director. The patient will have Hill catheter, inserted for better urine output monitoring. I ordered type and cross to transfuse the patient with 1 unit of blood. We will start furosemide. Jeannine Khoury MD [id number]
[2017-06-29] MEDS: Pantoprazole 40 mg EC Tab PO SCH (05:24)
[2017-06-29 06:24] LABS: MEAN CORPUSCULAR HEMOGLOBIN 31.4 pg (25.0-35.0); MEAN CORPUSCULAR HGB CONC 32.1 g/dl (31.0-37.0); MEAN PLATELET VOLUME 11.4 fl (7.0-11.0); RED CELL DISTRIBUTION WIDTH 20.5 % (11.5-14.5); WHITE BLOOD COUNT 6.3 10^3/ul (4.5-11.0)
[2017-06-29 06:29] LABS: CALCIUM 9.2 mg/dL (8.4-10.5); TOTAL PROTEIN 6.3 g/dL (5.8-8.3)
[2017-06-29 07:33] LABS: POTASSIUM 6.2 mmol/L (3.6-5.0)
--- NOTE | 2017-06-29 08:03 | CON ---
DATE: 06/28/2017 LOCATION: The patient is in room 365, bed 2. REASON FOR CONSULTATION: Ascites, hypertension, arthritis, edema of the legs, vomiting and rule out CHF. HISTORY OF PRESENT ILLNESS: An 87-year-old female who is known to have hypertension, arthritis, anemia, spinal stenosis, admitted with history since last two days she has been vomiting and some of the vomiting were brown discoloration. The patient also not had bowel movement for two days. The patient denied any chest pain. She also noticed that her abdominal girth has been gradually increasing and she has become very tense and she sleeps sitting up. The patient denied any chest pain or palpitation. PAST MEDICAL HISTORY: Positive for hypertension, arthritis, anemia, spinal stenosis. PERSONAL HISTORY: No history of smoking or drinking. ALLERGIES: NO ALLERGIES. HOME MEDICATIONS: The patient was on metoprolol and Dulera. She had used Lasix for a short period and it was then stopped. REVIEW OF SYSTEMS: All the systems reviewed. Positive mentioned in the history, otherwise negative. PHYSICAL EXAMINATION VITAL SIGNS: Blood pressure is 119/50, respirations 18, pulse 85 and temperature 98.5. HEENT: Head is normocephalic. Eyes: Pupils normal. Conjunctiva pale. NECK: JVP low. Carotids are equal. THORAX: AP diameter normal. LUNGS: No significant rales. Slightly diminished breath sounds at the left base. CARDIOVASCULAR: S1 and S2, systolic murmur grade 2/6. No rub. ABDOMEN: Tense, filled with ascites. PERIPHERIES: The patient has bilateral edema on the legs extending all the way up to the knees. LABORATORY DATA: Showed WBC 5.7, hemoglobin 7.8, hematocrit 25.1 and platelet 126. Sodium 135, potassium 5.7, BUN 74, creatinine 2.5, AST 74, ALT 55, alkaline phosphatase is 207, NT-proBNP 8690, total protein 6.5, albumin 3.3 and TSH 5.66. PT, PTT and INR are normal. The patient had abdomen and pelvis CT scan, which showed large amount of ascites, bilateral pleural effusion with compressive atelectasis right greater than left, large amount of retained stool, liver was nodular contour suggestive of cirrhosis. EKG showed regular sinus rhythm, prolonged [place] interval. DIAGNOSES: Very large ascites, renal failure, hyperkalemia, cirrhosis of liver as per CT scan of abdomen and pelvis, anemia, arthritis, hypertension, spinal stenosis, vomiting and possible fecal impaction. PLAN: The patient had an echocardiogram on 11/09/2016, which showed LV size was normal, [id number] concentric left ventricular hypertrophy, left ventricular ejection fraction of 65%, trace aortic regurgitation, mitral regurgitation is moderate, moderate tricuspid regurgitation, RVSP 70 mmHg, suggestive of moderate to significant pulmonary hypertension. The patient did not have a chest x-ray. We will order chest x-ray. We will give Lasix 80 mg IV, dopamine drip has been already started for renal procedure. The patient on the CAT scan of abdomen and pelvis and with renal failure, possibility of hepatorenal syndrome. The patient being followed by Dr. Vivas, renal. The patient will be monitored with intake and output and followup labs. Lasix have been increased to 80 mg q.12 hours, Toprol XL 50 mg daily, albuterol nebulizer was given. We will follow with you closely. Nickolas Little MD
[2017-06-29 08:30] VITALS: BP 113/44; PULSE 101; RESP 22; TEMP 98.7; O2SAT 97
--- NOTE | 2017-06-29 08:40 | PN ---
DATE: 06/28/2017 SUBJECTIVE: This patient was seen and evaluated earlier today. The patient is tolerating the liquids. No significant bowel movement. The patient has been on MiraLax. He already about three doses. PHYSICAL EXAMINATION: VITAL SIGNS: Temperature is 97.9, blood pressure 116/58, and pulse 98. HEENT: Atraumatic, anicteric. NECK: Supple. HEART: S1 and S2 heard. the basal air entry. ABDOMEN: Distended. EXTREMITIES: Bilateral pitting pedal edema present. NEUROLOGICAL: Alert and oriented. Moves all extremities. LABORATORY DATA: Hemoglobin has gone down to 7.8, hematocrit 25.1, WBC is 5.7, and platelets 126. Potassium has gone up to 5.7, BUN 74, creatinine 2.5. BNP is 8690 elevated, alkaline phosphatase 207, AST 74, and ALT 55. IMPRESSION: This is an 87-year-old patient admitted with vomiting, abdominal distention, and discomfort. The patient was found to have a new onset ascites. The patient has a history of adnexal mass. The patient did have a mildly elevated CA-125, real concern. The patient also has bilateral pleural effusion, ascites, and bilateral pitting pedal edema. Also concerned about the right-sided heart failure. He has a chronic kidney disease, on top of that acute kidney injury worsening. The patient is only on a 40 mL of fluid. At the time of examination, the real concern is about congestive heart failure giving fluids versus cardiac condition and was especially elevated. I would recommend: 1. Renal and cardiological evaluation. 2. Optimize the fluid status before considering paracentesis. We will discuss with also Dr. Baldemar Dsouza regarding the timing. I did discuss with Dr. Maria earlier and also the patient's daughter, I discussed with the patient's daughter at length. Renee Hoover MD
[2017-06-29] MEDS ORDERED: Albuterol 0.5% Inhal Sol (5 mg/ ml) 20 ml IH STA (08:49)
[2017-06-29] MEDS ORDERED: Dextrose 50% SYRINGE Inj (50 ml) IVP ONE (08:50)
[2017-06-29] MEDS ORDERED: Insulin Regular 1 UNITS/0.01 ML ML SC STA (08:50)
[2017-06-29] MEDS ORDERED: POLYETHYLENE GLYCOL 3350 17 GM/Dose PACKET PO ONE (08:51)
[2017-06-29] MEDS ORDERED: Sod Polystyrene Sulf 15 gm/60 ml Susp PO ONE ×2 (08:52→13:00)
[2017-06-29] MEDS: Metoprolol Succinate 50 mg XL Tab PO SCH (09:17)
[2017-06-29] MEDS ORDERED: Albumin Human 25% (12.5 gm/50 ml) IV ONE (09:17)
[2017-06-29] MEDS ORDERED: Insulin Regular 1 UNITS/0.01 ML ML IVP STA (09:28)
[2017-06-29] MEDS: MOMETASONE IH SCH ×2 (10:31→17:33)
[2017-06-29] MEDS: FORMOTEROL IH SCH ×2 (10:31→17:33)
--- NOTE | 2017-06-29 11:28 | CP.PCM.PN ---
<Arcelia Moore - Last Filed: 06/29/17 11:29> Subjective - Date & Time of Evaluation Date of Evaluation: 06/29/17 Time of Evaluation: 10:00 - Subjective Subjective: S&E at bedside, chart reviewed, Have elevated K today, s/o insulin, calcium glucanate, and kayexalate which patient did not tolerated, she vomited that, also given dose of Miralax. No BM yesteray or as of yet today. As per Rn daughter endorsed that patient tolerated liquids last night. Patient is awake and nauseous. Objective - Vital Signs/Intake and Output Vital Signs (last 24 hours): Temp Pulse Resp BP Pulse Ox 98.7 F 101 H 22 113/44 L 97 06/29/17 08:29 06/29/17 09:17 06/29/17 08:29 06/29/17 09:17 06/29/17 08:29 Intake and Output: 06/29/17 06/29/17 06:59 18:59 Intake Total 480 Balance 480 - Medications Medications: Current Medications Furosemide (Lasix) 80 mg IV Q12 [facility] Last Admin: 06/29/17 09:16 Dose: 80 mg Dopamine HCl/Dextrose (Dopamine 400mg/250ml D5w) 400 mg in 250 mls @ 8.481 mls/ hr IV .Q24H PRN; 2.5 MCG/KG/MIN PRN Reason: RENAL PERFUSION Last Admin: 06/28/17 17:40 Dose: 8.481 mls/hr Ketorolac Tromethamine (Toradol) 15 mg IVP Q6 PRN PRN Reason: Pain, moderate (4-7) Last Admin: 06/27/17 09:52 Dose: 15 mg Metoprolol Succinate (Toprol Xl) 50 mg PO DAILY [facility] Last Admin: 06/29/17 09:17 Dose: 50 mg Mometasone/Formoterol [Dulera 200 Mcg/5 Mcg Inhaler] 13 Gm 13 gm IH BID [facility] Last Admin: 06/28/17 19:20 Dose: Not Given Ondansetron HCl (Zofran Inj) 4 mg IVP Q8 PRN PRN Reason: Nausea/Vomiting Last Admin: 06/27/17 08:04 Dose: 4 mg Pantoprazole Sodium (Protonix Ec Tab) 40 mg PO 0600 [facility] Last Admin: 06/29/17 05:24 Dose: Not Given Sodium Polystyrene Sulfonate (Kayexalate Susp) 30 gm PO ONCE ONE Stop: 06/29/17 13:01 - Labs Labs: 06/29/17 05:30 06/29/17 05:30 PT 11.4 SECONDS (9.4-12.5) 06/26/17 22:53 INR 1.04 (0.93-1.08) 06/26/17 22:53 APTT 33.5 Seconds (25.1-36.5) 06/26/17 22:53 - Constitutional Appears: No Acute Distress - Head Exam Head Exam: NORMOCEPHALIC - Eye Exam Eye Exam: Normal appearance. absent: Scleral icterus - ENT Exam ENT Exam: Mucous Membranes Moist - Respiratory Exam Respiratory Exam: Decreased Breath Sounds, NORMAL BREATHING PATTERN. absent: Respiratory Distress - Cardiovascular Exam Cardiovascular Exam: +S1, +S2 - GI/Abdominal Exam GI & Abdominal Exam: Distended, Firm, Soft, Normal Bowel Sounds. absent: Guarding, Tenderness, Rebound - Extremities Exam Extremities Exam: Pedal Edema. 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 Hoover. <Renee Hoover V - Last Filed: 06/29/17 20:30> Objective - Vital Signs/Intake and Output Vital Signs (last 24 hours): Temp Pulse Resp BP Pulse Ox 98.7 F 101 H 22 113/44 L 97 06/29/17 08:29 06/29/17 09:17 06/29/17 08:29 06/29/17 09:17 06/29/17 08:29 - Medications Medications: Current Medications Furosemide (Lasix) 80 mg IV Q12 [facility] Last Admin: 06/29/17 09:16 Dose: 80 mg Dopamine HCl/Dextrose (Dopamine 400mg/250ml D5w) 400 mg in 250 mls @ 8.481 mls/ hr IV .Q24H PRN; 2.5 MCG/KG/MIN PRN Reason: RENAL PERFUSION Last Admin: 06/28/17 17:40 Dose: 8.481 mls/hr Ketorolac Tromethamine (Toradol) 15 mg IVP Q6 PRN PRN Reason: Pain, moderate (4-7) Last Admin: 06/27/17 09:52 Dose: 15 mg Metoprolol Succinate (Toprol Xl) 50 mg PO DAILY [facility] Last Admin: 06/29/17 09:17 Dose: 50 mg Morphine Sulfate (Morphine) 2 mg IVP Q4H PRN PRN Reason: Pain, moderate (4-7) Last Admin: 06/29/17 17:58 Dose: 2 mg Mometasone/Formoterol [Dulera 200 Mcg/5 Mcg Inhaler] 13 Gm 13 gm IH BID [facility] Last Admin: 06/29/17 17:33 Dose: Not Given Ondansetron HCl (Zofran Inj) 4 mg IVP Q8 PRN PRN Reason: Nausea/Vomiting Last Admin: 06/27/17 08:04 Dose: 4 mg Pantoprazole Sodium (Protonix Ec Tab) 40 mg PO 0600 [facility] Last Admin: 06/29/17 05:24 Dose: Not Given - Labs Labs: 06/29/17 05:30 06/29/17 12:50 PT 11.4 SECONDS (9.4-12.5) 06/26/17 22:53 INR 1.04 (0.93-1.08) 06/26/17 22:53 APTT 33.5 Seconds (25.1-36.5) 06/26/17 22:53 Attending/Attestation - Attestation I have personally seen and examined this patient.: Yes I have fully participated in the care of the patient.: Yes I have reviewed all pertinent clinical information, including history, physical exam and plan: Yes Notes (Text): this patient was seen and evaluated earlier. Multiple family members at bedside daughter said there and [id number] and daughter who are nurses were also there. Patient on 100% non-rebreathing mask on examination abdomen distended bilateral extensive rhonchi heard reduced he had entry at bases CT scan was reviewed and discussed with the radiologist Also discussed with the Dr. Cartagena and Dr. Baldemar Dsouza interventional radiologist Patient is scheduled for palliative large-volume paracentesis Prognosis poor. Patient has multiple organ failure cirrhosis of the liver, acute kidney injury, large ovarian cystic lesion without ascites Spent over 50 minutes of time interviewing records coordinating the care Thank you very much for allowing us to ports. In the care of the patient 06/29/17 20:26
--- NOTE | 2017-06-29 12:24 | PN ---
DATE: 06/29/2017 REASON FOR CONSULTATION: Cardiac evaluation, shortness of breath, ascites, hypertension, edema of the leg and acute kidney injury. SUBJECTIVE: The patient is lying in the bed. Feels little better. Family is at the bedside. PHYSICAL EXAMINATION: GENERAL: Mild respiratory distress. VITAL SIGNS: Temperature afebrile, heart rate 101 and blood pressure 113/44. HEENT: PERRLA. Extraocular muscles intact. NECK: Supple. No carotid bruit or thyromegaly. CHEST: Clear to auscultation. HEART: S1 and S2 regular. ABDOMEN: Soft. EXTREMITIES: Clubbing and cyanosis negative. LABORATORY DATA: WBC 6.3, hemoglobin 7. , hematocrit 24 and platelet count 112. Chemistry shows sodium 132, potassium 6.2, chloride 100, carbon dioxide 24, anion gap of 14, BUN 85 and creatinine 3.3. BNP 8690. IMPRESSION: An 87-year-old female with past medical history of hypertension, arthritis, anemia, spinal stenosis, admitted with nausea, vomiting, brown discoloration, severe anemia, acute kidney injury, ascites, possible cirrhosis with CAT scan and hyperkalemia. Last echo showed ejection fraction 65%, trace aortic regurgitation, moderate mitral regurgitation, moderate tricuspid regurgitation and right ventricular systolic pressure of 70 consistent with moderate pulmonary hypertension. RECOMMENDATION: Continue IV Lasix. Continue renal dose of dopamine. Will give Kayexalate for hyperkalemia. Overall, the patient's condition is critical. Long-term prognosis is guarded. We will follow with you. Thank you for providing us the opportunity in taking care of the patient, Jenna Garg. Nickolas Blue MD
[2017-06-29] MEDS ORDERED: Albuterol 0.5% Inhal Sol (2.5 mg/0.5 ml) UD IH STA (13:45)
[2017-06-29] MEDS ORDERED: Albuterol 0.5% Inhal Sol (2.5 mg/0.5 ml) UD IH SCH (14:00)
[2017-06-29] MEDS ORDERED: Morphine 2 mg/ml ISec IVP STA (14:29)
[2017-06-29] MEDS: Morphine 2 mg/ml ISec IVP PRN ×2 (15:00→17:58)
[2017-06-29 16:31] LABS: URINE BILIRUBIN SMALL (NEGATIVE); URINE BLOOD LARGE (NEGATIVE); URINE GLUCOSE (UA) NEGATIVE (NEGATIVE); URINE KETONE TRACE mg/dL (NEGATIVE); URINE LEUKOCYTE ESTERASE TRACE Leu/uL (NEGATIVE); URINE PROTEIN >=300 mg/dL (<30 mg/dL); URINE UROBILINOGEN 0.2 E.U./dL (<1 E.U./dL)
[2017-06-29 16:33] LABS: URINE APPEARANCE TURBID (CLEAR); URINE COLOR BROWN (YELLOW)
[2017-06-29 16:35] LABS: URINE BACTERIA MANY (NEG); URINE RBC TNTC /hpf (0-2)
--- NOTE | 2017-06-29 16:54 | PN ---
SUBJECTIVE: The patient is currently seen with her entire family in the room. The patient is very uncomfortable. She was hyperkalemic this morning, she is making little to no urine. Lengthy discussions about further investigation as to why the kidney is not working, the possibility of doing acute dialysis to lower her potassium level and the unknown about her underlying disease likely ovarian cancer, stage IV. MEDICATIONS: Medication list reviewed. The patient is currently on the Dulera, low-dose dopamine, IV Lasix, Protonix, Toprol, and Zofran p.r.n.. OBJECTIVE: INTAKE/OUTPUT: Intake 480, output less than 10 mL of urine. The patient currently has a Hill catheter that has been placed. VITAL SIGNS: Blood pressure 113/44, pulse of 101, temperature 98.7, respiratory rate 22, pulse ox 97%. HEENT: Shows her to be normocephalic, atraumatic. Conjunctivae are pale. Sclerae are nonicteric. NECK: Supple. No neck vein distention. CHEST: Clear to auscultation and percussion with slight decreased breath sounds at the left base. CARDIOVASCULAR: Shows a regular rate and rhythm. No audible murmurs, no rubs or gallops noted. ABDOMEN: Soft. Abdomen is moderately distended, positive ascites. No rebound, no guarding, no tenderness. No masses appreciated. EXTREMITIES: Show 1+ pitting edema of her lower extremity bilaterally. No cyanosis or clubbing. NEUROLOGIC: Shows her to be alert, communicating by shaking her head. No gross focal deficits noted. LABORATORY DATA AND IMAGING: Abdominal CT scan done yesterday showed mild ascites. Possible cirrhosis, gallstones, small bowel distention suggestive of ileus bilateral obstruction. Possible splenic flexure colitis, diverticulosis possible diverticulitis. Pleural effusions with bilateral airspace disease. Kidneys were unremarkable. The ureters were unremarkable. No mention of any adenopathy. Labs, CBC, white blood cell count 6.3, hemoglobin 7.7 with a platelet count of 112,000. Chemistries show a sodium of 132, potassium went as high as 6.2, it is currently 5.8. Chloride is 100 with a CO2 of 24, BUN is 85 with a creatinine of 3.3 up from 74 to 2.5. Her baseline BUN had been in the 20s. Baseline creatinine had been less than 1. Calcium 9.2, liver enzymes mildly elevated, bilirubin normal. CA-125 is pending. Albumin is 3.2. Urines are pending. ASSESSMENT: 1. Acute renal failure, possibly ATN. Perhaps secondary to hyperperfusion sustained in nature. Perhaps acute renal failure secondary to obstruction with no evidence for hydronephrosis or hydroureter as the GFR is decreased and there was no urine being made in the collecting system. Unable to see if she has any significant retroperitoneal lymphadenopathy on the present CT scan. Unlikely that she has tumor glomerulopathy with acute renal failure. The patient noted to have possible cirrhosis of the liver. Unlikely that she has hepatorenal syndrome. 2. Hyperkalemia. Repeat potassium level today, was as high as 6.2, status post Kayexalate, albuterol, insulin, her potassium is down to 5.8. Family is making a decision about the possibility of acute dialysis to lower her potassium level. 3. Possible stage IV ovarian cancer with ascites. A repeat CA-125 level is pending. The patient in the past decided not to have a workup of the adnexal mass. 4. Anemia in part secondary to acute renal failure and chronic medical situation. 5. Mild hypervolemia. The patient is edematous. She has ascites and she has evidence for pulmonary vascular congestion with pleural effusions. The patient is presently not responding to IV Lasix. PLAN: 1. Discuss with family in great detail. Uncertain in light of her DNR/DNI whether or not they would consider doing any form of acute dialysis. Potassium level dropping to 5.8 does give us a little room for breather. 2. We will obtain a urine sodium, urine creatinine, fractional excretion of sodium, urine Gilbert stain, urinalysis and urine C&S. 3. We will obtain a renal scan to check for renal perfusion, renal uptake and renal excretion. 4. Continue to monitor labs on a daily basis. 5. I explained the patient because she is a DNR/DNI. She is not being monitored in the telemetry unit for her hyperkalemia. 6. We will await the family's decision regarding the possibility of acute dialysis. 7. Await the results with the repeat CA-125 level, her initial CA-125 level from earlier this year was mildly elevated. Sarthak Bee MD
--- NOTE | 2017-06-29 18:56 | CP.PCM.PRO ---
Pronouncement of Note - Clinical Findings Physical Exam: No Response Verbal/Painful Stimuli, Absent Peripheral Pulses{ Carotid & Femoral}, Absent Heart & Breath Sounds, No Pupillary Light Reflex, Pupils Fixed & Dilated, Absence of Vital Signs - Pronouncement Time Time of Pronouncement of : 18:35 - Notifications Pronouncement Notifications: Family Notified, Atending Notified Coal Inspector Notified: No - Autopsy Autopsy Requested: No - [place] [id number]
--- NOTE | 2017-06-29 23:33 | PN ---
SUBJECTIVE: The patient is seen at bedside this morning. The patient's condition got worse since yesterday, she is more dyspneic. She continues with nausea and episodes of vomiting. There is no urine output. She denies any abdominal pain. PHYSICAL EXAMINATION: VITAL SIGNS: This morning show temperature 98.7, pulse 101 and regular, blood pressure 115/44 and respiratory rate 22. Her oxygen saturation at that time was in mid 90s. GENERAL: She was pale and tachypnic. HEENT: Head normocephalic and atraumatic. Oral mucosa is moist. NECK: Supple. LUNGS: Decreased breath sounds, scattered crackles in the base. HEART: With regular rhythm. ABDOMEN: Distended at term, but no localized tenderness. Bowel sounds diminished. EXTREMITIES: Diffuse 2+ edema extending up to hip area bilaterally. DIAGNOSTIC TESTS: CBC showed WBC 6.3, hemoglobin 7.7, hematocrit of 24 and platelet count of 112. Her chemistry shows severe hyperkalemia with potassium of 6.2. Her renal function got worse with BUN 85 and creatinine 3.3. Her liver enzymes were elevated. The patient had elevated CA-125 antigen at 387. The patient had very little urine output overnight and no urine output after furosemide with albumin. 20 to 30 mL of urine in the Hill catheter. ASSESSMENT: 1. Acute and chronic renal failure with worsening of renal function and no urine output. 2. Severe hyperkalemia secondary to acute renal failure. 3. Ascites and anasarca. 4. Congestive heart failure. 5. History of left adnexal mass with increased CA-125, most probably malignant. PLAN OF TREATMENT: Case was discussed at length with family members, discussed the patient's worsening condition and prognosis. The patient refused blood transfusion last night. The patient also declined any more aggressive treatment at this point. Awaiting evaluation by Central Office Repairer regarding any plans for acute dialysis however. Discussed with family that dialysis may not revise her severe renal impairment. We will continue Lasix with albumin. We will continue monitoring urine output. We will monitor her respiratory status and oxygen. Continue dopamine for renal function.Prognosis is grave. Jeannine Khoury MD [facility]
== END 2017-06-29 18:35 | DRG 755 ==
LOC: ED 22:03 → ERH 06-27 03:19 → 3RNO 06-27 04:17 → OBSVTOIN 06-28 11:55
PROVIDERS: ADMIT Internal Medicine; ATTEND Family Medicine
PROC: 3E0F7GC Introduction of Other Therapeutic Substance into Respiratory Tract, Via Natural or Artificial Opening (ICD-10-PCS; principal; 2017-06-28)
DX: C56.2 Malignant neoplasm of left ovary (principal); N17.9 Acute kidney failure, unspecified; L89.159 Pressure ulcer of sacral region, unspecified stage; R18.8 Other ascites; E87.5 Hyperkalemia; I13.0 Hypertensive heart and chronic kidney disease with heart failure and stage 1 through stage 4 chronic kidney disease, or unspecified chronic kidney disease; J44.9 Chronic obstructive pulmonary disease, unspecified; K74.60 Unspecified cirrhosis of liver; I50.9 Heart failure, unspecified; J98.11 Atelectasis; N18.3 Chronic kidney disease, stage 3 (moderate); D64.9 Anemia, unspecified; K59.00 Constipation, unspecified; M48.00 Spinal stenosis, site unspecified; Z66 Do not resuscitate; D50.9 Iron deficiency anemia, unspecified; K57.30 Diverticulosis of large intestine without perforation or abscess without bleeding; H91.90 Unspecified hearing loss, unspecified ear; M19.90 Unspecified osteoarthritis, unspecified site